=== PATIENT | male | born 1945 | race Caucasian/White ===

== ENCOUNTER 2019-09-16 10:16 | Outpatient (CLI) | payer MEDICARE, SELFPAY ==
[2019-09-16 10:37] LABS: Hematocrit 43.3 % (42.0-52.0); Hemoglobin 14.7 g/dL (14.0-18.0); Mean Corpuscular HGB Conc 33.9 g/dl (32-36); Mean Corpuscular Hemoglobin 31.6 pg (26-34); Mean Corpuscular Volume 93.1 fl (80-100); Mean Platelet Volume 10.4 fl (7.4-10.4); Platelet Count Result 273 k/mm3 (150-375); Red Blood Count 4.65 M/mm3 (4.6-6.20); Red Cell Distribution Width 12.3 % (11.5-14.5); White Blood Count 9.3 K/mm3 (4.5-10.0)
[2019-09-16 10:49] LABS: Albumin Level 4.3 g/dL (3.5-5.1); Blood Urea Nitrogen 54 mg/dL (9-20); Calcium 9.3 mg/dL (8.4-10.2); Carbon Dioxide 27 mmol/L (22-30); Chloride 103 mmol/L (98-107); Cholesterol 99 mg/dL (0-200); Creatinine Urine 46.7 mg/dL; Estimated Glomerular Filt Rate 23; Glucose 123 mg/dL (75-110); HDL Direct 33 mg/dL; Potassium 4.7 mmol/L (3.4-5.0); Sodium 139 mmol/L (137-145); Total Protein Urine Random 34 mg/dL; Triglycerides 124 mg/dL (<150)
[2019-09-16 10:53] LABS: Hemoglobin A1C 6.4 % (<5.7)
[2019-09-16 11:00] LABS: LDL Cholesterol Direct 41 mg/dL; Parathyroid Intact 102.2 pg/mL (7.5-53.5)
[2019-09-16 11:29] LABS: Vitamin D 25 Hydroxy 41.9 ng/mL
== END 2019-09-16 10:17 | disposition home or self-care (01) ==
PROVIDERS: PCP Internal Medicine; Visit Provider Internal Medicine
DX: N18.3 Chronic kidney disease, stage 3 (moderate) (principal); E11.9 Type 2 diabetes mellitus without complications; E78.5 Hyperlipidemia, unspecified
CPT/HCPCS: 36415; 80061; 80069; 82306; 82570; 83036; 83970; 84156; 85027

== ENCOUNTER 2020-01-16 11:16 | Outpatient (CLI) | payer MEDICARE, SELFPAY ==
[2020-01-16 11:52] LABS: Hemoglobin A1C 6.2 % (<5.7)
[2020-01-16 11:57] LABS: Alanine Aminotransferase 15 U/L (4-50); Alkaline Phosphatase 79 U/L (38-126); Anion Gap 9 mmol/L (8-16); Aspartate Amino Transferase 25 U/L (17-59); Bilirubin,Total 0.3 mg/dL (0.2-1.3); Blood Urea Nitrogen 51 mg/dL (9-20); Calcium 8.8 mg/dL (8.4-10.2); Carbon Dioxide 27 mmol/L (22-30); Chloride 105 mmol/L (98-107); Cholesterol 112 mg/dL (0-200); Estimated Glomerular Filt Rate 26; Glucose 121 mg/dL (75-110); HDL Direct 32 mg/dL; Potassium 4.6 mmol/L (3.4-5.0); Sodium 141 mmol/L (137-145); Triglycerides 146 mg/dL (<150)
[2020-01-16 12:07] LABS: LDL Cholesterol Direct 53 mg/dL
== END 2020-01-16 11:17 | disposition home or self-care (01) ==
LOC: ANHLAB 11:18
PROVIDERS: PCP Internal Medicine; Visit Provider Internal Medicine
DX: E78.5 Hyperlipidemia, unspecified (principal); I10 Essential (primary) hypertension; E11.69 Type 2 diabetes mellitus with other specified complication; Z79.4 Long term (current) use of insulin; Z79.899 Other long term (current) drug therapy
CPT/HCPCS: 36415; 80053; 80061; 83036; 84443

== ENCOUNTER 2020-02-06 10:55 | Outpatient (CLI) | payer MEDICARE, SELFPAY ==
[2020-02-06 11:57] LABS: Hematocrit 42.6 % (42.0-52.0); Hemoglobin 14.6 g/dL (14.0-18.0); Mean Corpuscular HGB Conc 34.3 g/dl (32-36); Mean Corpuscular Hemoglobin 31.4 pg (26-34); Mean Corpuscular Volume 91.6 fl (80-100); Mean Platelet Volume 10.8 fl (7.4-10.4); Platelet Count Result 305 k/mm3 (150-375); Red Blood Count 4.65 M/mm3 (4.6-6.20); Red Cell Distribution Width 12.5 % (11.5-14.5)
[2020-02-06 12:09] LABS: Albumin Level 4.2 g/dL (3.5-5.1); Anion Gap 10 mmol/L (8-16); Blood Urea Nitrogen 46 mg/dL (9-20); Calcium 9.4 mg/dL (8.4-10.2); Carbon Dioxide 25 mmol/L (22-30); Chloride 105 mmol/L (98-107); Estimated Glomerular Filt Rate 25; Glucose 198 mg/dL (75-110); Phosphorus 3.6 mg/dL (2.5-4.5); Potassium 4.7 mmol/L (3.4-5.0); Sodium 140 mmol/L (137-145)
[2020-02-06 12:20] LABS: Parathyroid Intact 117.6 pg/mL (7.5-53.5)
[2020-02-06 12:52] LABS: Creatinine Urine 55.2 mg/dL; Total Protein Urine Random 38 mg/dL
== END 2020-02-06 10:56 | disposition home or self-care (01) ==
PROVIDERS: PCP Internal Medicine; Referring Provider Internal Medicine; Visit Provider Internal Medicine Nephrology
DX: N18.4 Chronic kidney disease, stage 4 (severe) (principal)
CPT/HCPCS: 36415; 80069; 82306; 82570; 83970; 84156; 85027

== ENCOUNTER 2020-06-01 11:11 | Outpatient (CLI) | payer MEDICARE, SELFPAY ==
[2020-06-01 11:43] LABS: Basophils Absolute Auto 0.1 K/mm3 (0.0-0.1); Basophils Percent Auto 0.9 % (0.2-1.2); Eosinophils Percent Auto 9.9 % (0-4.4); Hematocrit 42.6 % (42.0-52.0); Hemoglobin 14.2 g/dL (14.0-18.0); Immature Granulocyte Absolute 0.06 K/mm3 (0.00-0.031); Immature Granulocyte Percent A 0.6 % (0-0.5); Lymphocytes Absolute Auto 2.07 K/mm3 (0.9-3.2); Mean Corpuscular HGB Conc 33.3 g/dl (32-36); Mean Corpuscular Hemoglobin 31.2 pg (26-34); Mean Corpuscular Volume 93.6 fl (80-100); Mean Platelet Volume 10.7 fl (7.4-10.4); Monocytes Percent Auto 9.8 % (2.6-8.5); Neutrophils Absolute Auto 5.7 K/mm3 (1.3-6.7); Neutrophils Percent Auto 57.8 % (45.5-73.1); Platelet Count Result 273 k/mm3 (150-375); Red Blood Count 4.55 M/mm3 (4.6-6.20); Red Cell Distribution Width 12.7 % (11.5-14.5); White Blood Count 9.9 K/mm3 (4.5-10.0)
[2020-06-01 11:54] LABS: Anion Gap 10 mmol/L (8-16); Blood Urea Nitrogen 53 mg/dL (9-20); Carbon Dioxide 25 mmol/L (22-30); Chloride 107 mmol/L (98-107); Cholesterol 107 mg/dL (0-200); Estimated Glomerular Filt Rate 28; Glucose 160 mg/dL (75-110); HDL Direct 39 mg/dL; Phosphorus 3.6 mg/dL (2.5-4.5); Potassium 4.3 mmol/L (3.4-5.0); Sodium 142 mmol/L (137-145); Triglycerides 120 mg/dL (<150)
[2020-06-01 11:56] LABS: Albumin Level 4.1 g/dL (3.5-5.1); Anion Gap 10 mmol/L (8-16); Blood Urea Nitrogen 53 mg/dL (9-20); Calcium 8.8 mg/dL (8.4-10.2); Carbon Dioxide 25 mmol/L (22-30); Chloride 106 mmol/L (98-107); Estimated Glomerular Filt Rate 26; Glucose 161 mg/dL (75-110); Phosphorus 3.7 mg/dL (2.5-4.5); Potassium 4.5 mmol/L (3.4-5.0); Sodium 141 mmol/L (137-145)
[2020-06-01 12:04] LABS: LDL Cholesterol Direct 41 mg/dL
[2020-06-01 12:05] LABS: Parathyroid Intact 127.3 pg/mL (7.5-53.5)
[2020-06-01 12:19] LABS: Creatinine Urine 87.6 mg/dL; Total Protein Urine Random 40 mg/dL; Ur Ttl Prot Creatinine Ratio 0.46 mg/mg (0-0.20)
[2020-06-01 12:21] LABS: Hemoglobin A1C 6.2 % (<5.7)
[2020-06-01 12:25] LABS: Parathyroid Intact 116.2 pg/mL (7.5-53.5)
[2020-06-01 12:33] LABS: Free T4 Free Thyroxine 1.03 ng/mL (0.78-2.19); Vitamin D 25 Hydroxy 39.5 ng/mL
[2020-06-01 14:47] LABS: Total Protein Urine Random 44 mg/dL
[2020-06-01 15:46] LABS: MALB Creatinine Ratio 225.7 mg/g (0-30); Microalbumin Urine Random 198.6 mg/L (0-16.7)
== END 2020-06-01 11:12 | disposition home or self-care (01) ==
LOC: ANHLAB 11:15
PROVIDERS: PCP Internal Medicine; Visit Provider Internal Medicine Nephrology
DX: I12.9 Hypertensive chronic kidney disease with stage 1 through stage 4 chronic kidney disease, or unspecified chronic kidney disease (principal); N18.4 Chronic kidney disease, stage 4 (severe); E55.9 Vitamin D deficiency, unspecified; E11.319 Type 2 diabetes mellitus with unspecified diabetic retinopathy without macular edema; Z51.81 Encounter for therapeutic drug level monitoring; Z79.4 Long term (current) use of insulin
CPT/HCPCS: 36415; 80061; 80069; 82043; 82306; 82570; 83036; 83970; 84156; 84439; 84443; 85025

== ENCOUNTER 2020-10-31 09:07 | Outpatient (CLI) | payer MEDICARE, SELFPAY ==
[2020-10-31 09:23] LABS: Hematocrit 40.8 % (42.0-52.0); Hemoglobin 13.4 g/dL (14.0-18.0); Mean Corpuscular HGB Conc 32.8 g/dl (32-36); Mean Corpuscular Volume 94.4 fl (80-100); Mean Platelet Volume 10.4 fl (7.4-10.4); Platelet Count Result 271 k/mm3 (150-375); Red Blood Count 4.32 M/mm3 (4.6-6.20); Red Cell Distribution Width 13.2 % (11.5-14.5); White Blood Count 8.8 K/mm3 (4.5-10.0)
[2020-10-31 09:52] LABS: Hemoglobin A1C 6.1 % (<5.7)
[2020-10-31 09:56] LABS: Anion Gap 12 mmol/L (8-16); Blood Urea Nitrogen 56 mg/dL (9-20); Calcium 9.3 mg/dL (8.4-10.2); Carbon Dioxide 24 mmol/L (22-30); Chloride 106 mmol/L (98-107); Cholesterol 122 mg/dL (0-200); Estimated Glomerular Filt Rate 23; Glucose 110 mg/dL (75-110); HDL Direct 38 mg/dL; Potassium 4.7 mmol/L (3.4-5.0); Sodium 142 mmol/L (137-145); Triglycerides 107 mg/dL (<150)
[2020-10-31 10:01] LABS: Creatinine Urine 45.2 mg/dL; Total Protein Urine Random 24 mg/dL; Ur Ttl Prot Creatinine Ratio 0.53 mg/mg (0-0.20)
[2020-10-31 10:07] LABS: LDL Cholesterol Direct 48 mg/dL
[2020-10-31 12:28] LABS: Albumin Level 4.1 g/dL (3.5-5.1); Anion Gap 10 mmol/L (8-16); Blood Urea Nitrogen 56 mg/dL (9-20); Calcium 9.2 mg/dL (8.4-10.2); Carbon Dioxide 26 mmol/L (22-30); Chloride 108 mmol/L (98-107); Estimated Glomerular Filt Rate 23; Glucose 109 mg/dL (75-110); Phosphorus 4.3 mg/dL (2.5-4.5); Potassium 4.7 mmol/L (3.4-5.0); Sodium 144 mmol/L (137-145)
[2020-10-31 12:46] LABS: Parathyroid Intact 98.1 pg/mL (7.5-53.5)
== END 2020-10-31 09:08 | disposition home or self-care (01) ==
LOC: ANHLAB 09:10
PROVIDERS: PCP Internal Medicine; Visit Provider Internal Medicine Nephrology
DX: E78.5 Hyperlipidemia, unspecified (principal); N18.4 Chronic kidney disease, stage 4 (severe); I10 Essential (primary) hypertension; E11.319 Type 2 diabetes mellitus with unspecified diabetic retinopathy without macular edema; Z79.4 Long term (current) use of insulin; Z79.899 Other long term (current) drug therapy
CPT/HCPCS: 36415; 80048; 80061; 80069; 82570; 83036; 83970; 84156; 84439; 84443; 85027

== ENCOUNTER 2020-12-03 08:46 | Inpatient (IN) | payer MEDICARE, SELFPAY ==
[2020-12-03] VITALS (13 sets, daily range): BP systolic 110–154; BP diastolic 39–96; PULSE 91–120; RESP 12–23; TEMP 37–37.7; O2SAT 90–99; BMI 32.1
--- NOTE | ~2020-12-03 | XR_ITS ---
EXAMINATION: XR chest port-a-cath/central DATE: 12/09/2020 16:07 INDICATION: Central line placement. TECHNIQUE: A single frontal view of the chest was obtained on 2 radiographs. COMPARISON: Chest single view at 2:19 PM FINDINGS: There are airspace and interstitial opacities throughout the lungs bilaterally. No pleural effusion or pneumothorax. The heart size is normal. The endotracheal tube tip is 4.2 cm above the car shira. There is a right internal jugular central venous catheter with tip in superior vena cava. IMPRESSION: 1. Central line tip in superior vena cava. 2. Stable diffuse lung disease, consistent with COVID-19 pneumonia without or with some component of pulmonary edema. Reviewed, dictated and finalized at location A. IMPRESSION: 1. Central line tip in superior vena cava. 2. Stable diffuse lung disease, consistent with COVID-19 pneumonia without or w ith some component of pulmonary edema.
--- NOTE | ~2020-12-03 | CT_ITS ---
EXAMINATION: CT brain wo con DATE: 12/03/2020 INDICATION: Head injury. TECHNIQUE: Computed tomography (CT) of the head was performed without intravenous contrast. The mA wa s adjusted according to patient size. Iterative reconstruction technique was employed. The dose-lengt h product was 605.33 mGy-cm. COMPARISON: None FINDINGS: There are scattered areas of low attenuation in the cerebral white matter. There is a lacun ar infarct in the right thalamus, likely chronic. There are old infarcts in the cerebellum bilaterall y. There is no intracranial hemorrhage, acute infarction, or abnormal intracranial mass lesion. The v entricles are normal in size. There is mild mucosal thickening in the paranasal sinuses. There are li bradley changes of ocular lens replacement surgeries. The orbits are normal. IMPRESSION: 1. 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 2. Moderate nonspecific cerebral white matter disease, which likely represents chronic small vessel i schemic disease. Reviewed, dictated and finalized at location B. IMPRESSION: 1. 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 2. Moderate nonspecific cerebral white matter disease, which likely represents chronic small vessel ischemic disease.
--- NOTE | ~2020-12-03 | XR_ITS ---
EXAMINATION: XR chest ET placement DATE: 12/09/2020 14:33 INDICATION: Intubation. COVID-19 pneumonia. TECHNIQUE: A single frontal view of the chest was obtained. COMPARISON: Chest single view at 7:57 AM, chest two views 12/04/20 FINDINGS: There are airspace and interstitial opacities in all lung zones bilaterally. There is a sma ll left pleural effusion. No pneumothorax. The heart size is normal. The endotracheal tube tip is 3.4 cm above the earlene. IMPRESSION: 1. Stable diffuse lung disease, consistent with COVID-19 pneumonia without or with some component of pulmonary edema. 2. Stable small left pleural effusion. Reviewed, dictated and finalized at location A. IMPRESSION: 1. Stable diffuse lung disease, consistent with COVID-19 pneumonia without or w ith some component of pulmonary edema. 2. Stable small left pleural effusion.
--- NOTE | ~2020-12-03 | XR_ITS ---
XR chest 1V portable DATE: 12/08/2020 05:43 INDICATION: Covid pneumonia TECHNIQUE: Portable AP chest on 12/08/2020 at 0519 hours COMPARISON: 12/06/2020 portable AP chest at 0440 hours FINDINGS: Extensive bilateral patchy pulmonary infiltrates appear relatively stable since 12/06/2020. No pleural effusion or pneumothorax. Heart size appears within normal range. Is aortic arch calcification. IMPRESSION: Persistent patchy bilateral pulmonary infiltrates Reviewed, dictated and finalized at location A.
--- NOTE | ~2020-12-03 | US_ITS ---
EXAMINATION:US venous doppler LE BI INDICATION:Tachycardia. Covid. TECHNIQUE: Multiple grayscale, color flow and Doppler images of the right and left lower extremity de ep venous systems were obtained and reviewed. COMPARISON:No prior studies for comparison FINDINGS: The common femoral, superficial femoral and popliteal veins demonstrate normal respiratory variation, augmentation and compressibility. Color flow is also seen within the posterior tibial, pe roneal, greater saphenous and profunda veins. IMPRESSION: 1: No lower extremity deep venous thrombosis. Reviewed, dictated and finalized at location A.
--- NOTE | ~2020-12-03 | XR_ITS ---
EXAMINATION: XR abdomen NG/feed tube insert DATE: 12/10/2020 11:21 INDICATION: Orogastric tube placement TECHNIQUE: A supine view of the abdomen and lower chest was obtained for evaluation of feeding tube placement. COMPARISON: None. FINDINGS: Endotracheal tube tip 5.3 cm above the earlene. Nasogastric tube tip in proximal side port in the body of the stomach. Right internal jugular central venous catheter tip at the midsuperior vena cava. [place] in the left lower lung zone. Heart size is normal. IMPRESSION: 1. Orogastric tube tip in proximal side port in the body of the stomach. 2. Opacities in the left lower lung zone which could represent atelectasis, pneumonia or asymmetric p ulmonary edema. Reviewed, dictated and finalized at location B. IMPRESSION: 1. Orogastric tube tip in proximal side port in the body of the stomach. 2. Opacities in the left lower lung zone which could represent atelectasis, pne umonia or asymmetric pulmonary edema.
--- NOTE | ~2020-12-03 | XR_ITS ---
EXAMINATION: XR chest 1V portable EXAM DATE: 12/10/2020 06:14 INDICATION: Acute hypoxic respiratory failure, COVID pneumonia . TECHNIQUE: Portable AP frontal chest x-ray was obtained. Comparison is made to prior examination from 12/09/2020. FINDINGS: Endotracheal tube is adequately positioned. There is a right-sided IJ venous line. Moderate amount of ill-defined bilateral airspace disease, pneumonia and/or edema. There are no siza ble pleural effusions. There is no pneumothorax suspected. Patient is rotated to the left making cardiac silhouette difficult to evaluate. The bones and soft tissues are unremarkable. There is no significant interval change compared to prior exam. IMPRESSION: 1. Line and tube in position. 2. Stable airspace disease and other findings as above. Reviewed, dictated and finalized at location A.
--- NOTE | ~2020-12-03 | XR_ITS ---
EXAMINATION: XR chest 1V portable DATE: 12/05/2020 16:57 INDICATION: COVID pneumonia TECHNIQUE: frontal view of the chest was obtained. COMPARISON: Chest radiograph dated 12/04/2020 FINDINGS: Increasing patchy groundglass opacities now throughout the right lung with no opacities in the upper lung zone and in the left mid and lower lung zones, new in the mid lung zone. No pleural effusion or pneumothorax. The cardiomediastinal silhouette is normal. IMPRESSION: 1. Continued progression in bilateral airspace opacities, right greater than left consistent with wor sening pneumonia. Reviewed, dictated and finalized at location A. IMPRESSION: 1. Continued progression in bilateral airspace opacities, right greater than le ft consistent with worsening pneumonia.
--- NOTE | ~2020-12-03 | XR_ITS ---
XR chest 1V portable 12/06/2020 05:33 Indication: CovidPneumonia Procedure: AP portable chest Comparison: Comparison to multiple prior studies sequentially, with oldest reviewed study dated 04/2011. Findings: Persistent patchy bilateral airspace disease, right greater than left. No significant effus ion or pneumothorax. Stable cardiomediastinal silhouette. No acute osseous abnormality. Impression: 1: No significant change to patchy bilateral airspace disease, compatible with pneumonia. Reviewed, dictated and finalized at location A. Impression: 1: No significant change to patchy bilateral airspace disease, compatible with pneumonia.
--- NOTE | ~2020-12-03 | XR_ITS ---
XR chest 1V portable DATE: 12/09/2020 08:16 INDICATION: Acute respiratory failure. Covid pneumonia. TECHNIQUE: Portable AP chest on 12/09/2020 at 0802 hours COMPARISON: 12/08/2020 portable AP chest at 0519 hours FINDINGS: There are extensive diffuse bilateral patchy consolidating infiltrates, increased since 11/19. There is mild prominence of the minor fissure. There is minimal blunt blunting of the costoph renic angles. Differential diagnosis includes extensive bilateral pneumonia and/or pulmonary edema. Heart size is normal. Is aortic arch calcification. IMPRESSION: Diffuse severe bilateral pulmonary infiltrates, increased in severity since 12/08/2020; di fferential diagnosis includes severe bilateral pneumonia and/or pulmonary edema Mild prominence of the minor fissure and minimal blunting of costophrenic angles may indicate mild co ngestive changes Reviewed, dictated and finalized at location A. IMPRESSION: Diffuse severe bilateral pulmonary infiltrates, increased in severi ty since 12/08/2020; differential diagnosis includes severe bilateral pneumonia and/or pulmonary edema Mild prominence of the minor fissure and minimal blunting of costophrenic angle s may indicate mild congestive changes
--- NOTE | ~2020-12-03 | XR_ITS ---
EXAMINATION: XR chest 1V portable EXAM DATE: 12/11/2020 05:37 INDICATION: Acute hypoxic respiratory failure, COVID pneumonia. TECHNIQUE: Portable AP frontal chest x-ray was obtained. Comparison is made to prior examination from 12/10, 12/09. FINDINGS: Endotracheal and feeding tube are adequately positioned. There is a right-sided IJ venous l ine. There is ill-defined bilateral airspace disease, pneumonia and/or edema. There are no sizable pleura l effusions. There is no pneumothorax suspected. The bones and soft tissues are unremarkable. Difficult to determine any interval change in airspace disease due to difference in penetration, tech nique. IMPRESSION: 1. Line and tubes in position. 2. Bilateral airspace disease as above. Reviewed, dictated and finalized at location A.
--- NOTE | ~2020-12-03 | XR_ITS ---
XR chest 2V 12/03/2020 09:27 Indication: Hypoxia. Tachycardia. Procedure: AP and lateral views of the chest Comparison: 09/19/2011 Findings: Patchy bilateral pneumonia. No significant effusion. Heart size normal. No pneumothorax. No acute osseous abnormality. Impression: 1: Patchy bilateral pneumonia, right greater than left. Reviewed, dictated and finalized at location A. Impression: 1: Patchy bilateral pneumonia, right greater than left.
--- NOTE | ~2020-12-03 | US_ITS ---
EXAMINATION: US renal BI DATE: 12/05/2020 13:40 INDICATION: Acute renal insufficiency TECHNIQUE: Multiple ultrasound grayscale images of the kidneys were obtained. COMPARISON: None. FINDINGS: The right kidney measures 13.2 x 6.1 x 5.8 cm. The left kidney measures 10.3 x 4.6 x 7.5 cm. The kidn eys demonstrate persistent diffuse increased echogenicity consistent with medical renal disease. Ther e are couple anechoic right renal cysts measuring 2.4 cm and 1.0 cm. 7 mm anechoic left renal cyst. T here is no hydronephrosis in either kidney. No stones identified. The bladder is nonvisualized, like ly decompressed with a Chou catheter reportedly in place. IMPRESSION: 1. Bilateral increased renal cortical echogenicity consistent with chronic medical renal disease. No hydronephrosis. Reviewed, dictated and finalized at location A. IMPRESSION: 1. Bilateral increased renal cortical echogenicity consistent with chronic med ical renal disease. No hydronephrosis.
--- NOTE | ~2020-12-03 | XR_ITS ---
EXAMINATION: XR chest 2V DATE: 12/04/2020 09:33 INDICATION: Pneumonia. TECHNIQUE: Frontal and lateral views of the chest were obtained. COMPARISON: Chest 2 views 12/03/2020 FINDINGS: There are airspace opacities in all right lung zones with a perihilar predominance. There a re airspace opacities in left lower lung zone. No pleural effusion or pneumothorax. The heart size is normal. IMPRESSION: 1. Worsened airspace opacities in right lung and left lower lung zone, consistent with pneumonia. Reviewed, dictated and finalized at location B. IMPRESSION: 1. Worsened airspace opacities in right lung and left lower lung zone, consiste nt with pneumonia.
--- NOTE | 2020-12-03 08:49 | ECG_ITS ---
Measurements Intervals Farber Rate: 115 P: MO: 0 QRS: -23 QRSD: 122 T: 9 QT: 293 QTc: 406 Interpretive Statements ATRIAL FLUTTER/TACHYCARDIA WITH RAPID VENTRICULAR RESPONSE CANNOT RULE OUT SEPTAL INFARCT, AGE INDETERMINATE BORDERLINE ST-T WAVE ABNORMALITY- DIFFUSE LEADS BASELINE ARTIFACT- I, II, III, AVR, AVL, AVF, V1-V6 ABNORMAL ECG Electronically Signed On 12-05-2020 16:01:42 CDT by Jean-Paul Garcia D.O.
[2020-12-03 09:17] LABS: Basophils Percent Auto 0.2 % (0.2-1.2); Hemoglobin 12.7 g/dL (14.0-18.0); Immature Granulocyte Absolute 0.11 K/mm3 (0.00-0.031); Immature Granulocyte Percent A 0.9 % (0-0.5); Lymphocytes Absolute Auto 0.37 K/mm3 (0.9-3.2); Lymphocytes Percent Auto 3.1 % (18.3-44.2); Mean Corpuscular HGB Conc 32.6 g/dl (32-36); Mean Corpuscular Hemoglobin 31.1 pg (26-34); Mean Corpuscular Volume 95.4 fl (80-100); Mean Platelet Volume 10.9 fl (7.4-10.4); Monocytes Absolute Auto 0.6 K/mm3 (0.1-0.6); Monocytes Percent Auto 4.9 % (2.6-8.5); Neutrophils Percent Auto 90.9 % (45.5-73.1); Platelet Count Result 200 k/mm3 (150-375); Red Blood Count 4.09 M/mm3 (4.6-6.20); Red Cell Distribution Width 13.8 % (11.5-14.5); White Blood Count 12.1 K/mm3 (4.5-10.0)
[2020-12-03 09:28] LABS: Lactic Acid Reflex 1.3 mmol/L (0.7-2.1)
[2020-12-03 09:29] LABS: Alanine Aminotransferase 38 U/L (4-50); Albumin Level 3.7 g/dL (3.5-5.1); Alkaline Phosphatase 63 U/L (38-126); Anion Gap 9 mmol/L (8-16); Aspartate Amino Transferase 99 U/L (17-59); Bilirubin,Total 0.2 mg/dL (0.2-1.3); Blood Urea Nitrogen 91 mg/dL (9-20); Calcium 7.8 mg/dL (8.4-10.2); Carbon Dioxide 19 mmol/L (22-30); Chloride 110 mmol/L (98-107); Estimated CRCL calculation 17 ml/min; Estimated Glomerular Filt Rate 14; Glucose 206 mg/dL (65-110); Potassium 4.3 mmol/L (3.4-5.0); Sodium 138 mmol/L (137-145)
[2020-12-03] MEDS: FAMOTIDINE 20 MG/2 ML VIAL IV PUSH (10:18)
[2020-12-03 10:41] LABS: Creatine Kinase 1437 U/L (55-170)
[2020-12-03 10:42] LABS: Lipase 26 U/L (23-300)
[2020-12-03 10:53] LABS: NT Pro B Type Natriuretic Pept 1270 pg/mL (5-100)
[2020-12-03 10:54] LABS: Troponin I 0.029 ng/mL (0.000-0.034)
--- NOTE | 2020-12-03 11:08 | ED.FALL ---
HPI - Fall General Chief Complaint: Fall Stated Complaint: Multiple falls Time Seen by Provider: 12/03/20 09:18 Source: patient, EMS and RN notes reviewed Mode of arrival: EMS Limitations: no limitations History of Present Illness HPI Narrative: Patient is 75-year-old male who presents per EMS for weakness over the last 4 days he has become progressively more weak patient has had upper respiratory symptoms with cough and congestion. Patient rolled out of bed today was unable to get up he lives at home with his who has COPD and is also experiencing upper respiratory symptoms. He is fully vaccinated for Covid. Patient on arrival to emergency department lying in the bed has no complaints of pain. Denies chest pain shortness of breath dysuria or bowel habit changes. Patient denies injury or trauma related to rolling out of bed. Per family patient is currently being treated for sinus infection with antibiotics that were called in by primary care Related Data Home Medications Medication Instructions Recorded Confirmed fiber tablet PO 11/05/20 11/07/20 Allergies Allergy/AdvReac Type Severity Reaction Status Date / Time baclofen Allergy Unknown Unknown Verified 11/05/20 14:28 Review of Systems Review of Systems: All systems reviewed & are unremarkable except as noted in HPI and below PMFSH Past Medical History Medical History Anxiety BMI 34.0-34.9,adult BMI 35.0-35.9,adult Chronic low back pain CKD (chronic kidney disease) Colon cancer screening Depression DM type 2 (diabetes mellitus, type 2) Encounter for routine adult health examination without abnormal findings Falls GERD (gastroesophageal reflux disease) HTN (hypertension) Hyperlipidemia Impaired functional mobility, balance, gait, and endurance On rpg developer drug therapy Peripheral neuropathy Pre-operative cardiovascular examination Family History Family History Mother Diabetes mellitus Family history of Alzheimer's disease Father Carcinoma of colon Other Hypertension Social History Social History Smoking status: Never smoker Second hand tobacco smoke exposure: No Alcohol intake: never Exam Narrative: GENERAL: Ill-appearing, obese, and in no acute distress. HEAD: Normocephalic, atraumatic. EYES: PERRLA and EOMI. ENT: Nares clear, no rhinorrhea or epistaxis. Mucous membranes moist. Oropharynx without tonsillar hypertrophy exudate or other lesions. NECK: Supple. No adenopathy or masses. CHEST: Clear to auscultation. No respiratory distress. Slight crackles in the lung bases bilaterally no wheezing HEART: Tachycardic rate and regular rhythm. No murmur heard. Normal peripheral pulses. ABDOMEN: Soft, nontender, distended EXTREMITIES: Normal range of motion. 1+ edema lower extremities. No cervical thoracic or lumbar tenderness SKIN: Warm, dry, no rash. NEURO: No focal deficits. Alert and oriented x3. Cranial nerves II through XII grossly intact. Normal speech PSYCH: Normal mood and affect. Course Course Emergency Course: Patient presented with sepsis presentation likely pneumonia given the upper respiratory symptoms he has had improvement with his heart rate which is now looking more as though it is a sinus tachycardia around 100 and regular. Patient was hydrated with 2 L in the emergency department and will be placed on a rate to avoid volume overload he has acute kidney injury pneumonia and it meeting SIRS criteria. Patient was given Rocephin and Zithromax. Patient had normal lactic. Patient will be placed on medical telemetry floor for his tachycardia. Discussion was made with the hospitalist service who will manage this patient. ABCs and vital signs intact and stable at this time Consultations Consultation #1: Discussed case with hospitalist who has agreed to
[2020-12-03 11:11] LABS: CRP 25.9 mg/dL (<1.0)
[2020-12-03] MEDS: SODIUM CHLORIDE 0.9% IV 1,000 ML 999 ML IV CONT (11:44)
[2020-12-03 11:52] LABS: Prothrombin Time 12.8 Seconds (11.1-14.7)
[2020-12-03 11:53] LABS: Partial Thromboplastin Time 25.3 SECONDS (22.3-36.8)
--- NOTE | 2020-12-03 11:59 | PC.NURSE ---
called lab and talked to Brittany oates on a Procalcitonin at 1155
[2020-12-03 12:49] LABS: Add Urine Microscopic? YES; Appearance Urine Cloudy (Clear); Bilirubin Urine Negative (Negative); Blood Urine 3+ (Negative); Color Urine Yellow (Yellow); Glucose Urine UA Negative (Negative); Ketones Urine Negative (Negative); Leukocyte Esterase Ur Negative LEU/UL (Negative); Nitrate Urine Negative (Negative); Protein Urine 2+ mg/dL (Negative); RBC Urine >75 /hpf (0-2); Specific Grav Ur 1.017 (1.001-1.035); Urobilinogen Urine Negative mg/dL (<2.0)
[2020-12-03 13:00] LABS: Procalcitonin 8.2 ng/mL
--- NOTE | 2020-12-03 13:33 | PM.IMHP ---
H&P: HPI History of Present Illness Date/Time: 12/03/20 13:33 Nguyễn is alert and oriented x 3-4. He was able to tell me what Hospital we are in, the president and the correct emergency services dispatcher names, the day, and recall his medical history well. His full neuor assessment was negative for any concerns, no new weakness or unilateral changes or weakness, no numbness or new tingling, and he does have chronic neuropathy that his PCP treats him for. He does admit to having a dry but persistent cough and chest congestion at home, but denies fevers or chills. He states that he had both Moderna Vaccinations back in July. He denies any use of oxygen at home, but he is currently on 4 L O2 NC and has SpO2 of 94-95% with RR 20s. No dyspnea or wheezing with conversation. He stated that his has been home sick for a few days, that they both went to see their PCP Dr. Pulido in October, so they called him when she was feeling poorly. She has had chest congestion and coughing and her PCP diagnosed her with pneumonia per Nguyễn. Then Nguyễn noticed that he too was developing cough and chest congestion, so their PCP called in oral antibiotics Cefdinir, which Nguyễn has taken for 1-2 days, before coming to the ED today. He also stated that they used bottled water only for drinking, and that they had been out of bottled water for some time, but finally got some this weekend. He admitted that he has very likely not been drinking enough water at home. This could explain his worsening acute on chronic renal failure. He also has a few nephrotoxic home medications, including: HCTZ, ozempic. He denies drinking alcohol or smoking. He stated that he has fallen or felt more accurately that he slid out of bed today and yesterday; he denies any other occurrences. He denies passing out and does remember the occasions that he slid out of bed. He also denies any injuries and denies hitting his head. Admitted to ED, found to have bilateral patchy pneumonia with right worse than left, no effusion, normal heart size, COVID test is pending, started on IV Azithro and IV Rocephin. His blood cultures were collected, procalcitonin and his UA reflex collected but still pending. 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 Elevated labs include: Creatinine 4.2 ( from 2020 to October 2020 creatinine baseline was 2.3-2.7). AST elevated at 99, WBC 12.1 today with October 2020 baseline 8.8, Total CK 1437, CRP 25.9, BNP 1270, PTH 98.1 in October 2020. He is receiving IVFs, diabetic diet, Moderate SSI and glucose checks, telemetry monitoring, and breathing treatments. He will be admitted, treated, and monitored for Acute on Chronic Renal Failure with Dehydration, Sepsis, uncontrolled DM, Community Acquired Bilateral Pneumonia (treated as bacterial until proven or disproven to be viral), Elevated PTH, Rhabdomyolsis, and Weakness with Recent Fall. Chief Complaint: Weakness, Dehydration, Cough and Chest congestion Review of Systems Review of Systems: All systems reviewed & are unremarkable except as noted in HPI and below Constitutional: Constitutional: Reports as per HPI, Denies chills, Denies excessive sweating, Reports fatigue, Denies headache(s), Denies increased appetite, Reports lethargy, Denies snoring, Reports weakness and Denies weight gain Eyes: Eyes: Reports as per HPI, Denies exophthalmos, Denies diplopia, Denies floaters and Denies loss of peripheral vision ENT: Reports as per HPI, Reports Normal hearing present, Denies facial pain, Denies headache(s), Denies epistaxis, Denies nasal congestion, Denies odynophagia and Denies tinnitus Cardiovascular: Cardiovascular: Reports as per HPI, Denies chest pain, Denies diaphoresis, Denies pedal edema, Denies leg edema and Denies lightheadedness Respiratory: Respiratory: Reports as per HPI, Reports chest congestion, Reports cough, Denies hemoptysis, Denies dyspnea, Denies dyspnea on exertion, Denies snoring and Denies wheezing Gastrointestinal:
[2020-12-03 13:35] LABS: Glucose Point of Care 273 mg/dl (65-105)
[2020-12-03] MEDS: IPRATROPIUM BR 0.02% INH SOLN 0.5 MG/2.5 ML VIAL INHALATION ×2 (15:17→20:04)
[2020-12-03] MEDS: ALBUTEROL SULFATE NEB 2.5 MG/0.5 ML INH 5 MG INHALATION ×2 (15:17→20:03)
--- NOTE | 2020-12-03 17:24 | ADMGEN ---
This patient, Nguyễn Farrar, was admitted to 3 [facility] Surg Room 303-01 at 1645. Patient/family oriented to hospital policies and general routines including ID bracelet, bed and alarms, visiting hours, pain management, procedures, bathroom and other care routines, personal items, smoking policy, room service/diet, and visiting hours. Information on how to activate the Rapid Response Team has been discussed. Patient/Family are encouraged to report perceived risks to care and to ask questions if they do not understand what they are told or what they should do.
[2020-12-03 18:30] LABS: SARS-CoV-2 RNA PCR Positive
[2020-12-03 18:41] LABS: Glucose Point of Care 182 mg/dl (65-105)
[2020-12-03] MEDS: LACTATED RINGERS 1,000 ML 100 ML IV CONT (18:47)
[2020-12-03 18:58] LABS: Glucose Point of Care 147 mg/dl (65-105)
--- NOTE | 2020-12-03 20:25 | PC.NURSE ---
during shift change pt pulled out IV as well as telemetry. Tele was placed back on but will try to get another IV
[2020-12-03] MEDS: PREGABALIN (*CRX) 75 MG CAPSULE PO (23:23)
[2020-12-03 23:26] LABS: Glucose Point of Care 155 mg/dl (65-105)
[2020-12-04] VITALS (29 sets, daily range): BP systolic 101–155; BP diastolic 60–78; PULSE 85–129; RESP 18–24; TEMP 36.5–38.9; O2SAT 77–100
--- NOTE | 2020-12-04 | ECHO_ITS ---
Patient Info Name: Nguyễn Farrar Age: 75 years : 1945 Gender: Male Ht: 72 in Wt: 236 lbs BSA: 2.36 m2 HR: 120 bpm BP: 140 / 78 mmHg Heart Rhythm: Tachycardia Exam Date: 12/04/2020 1:43 PM Exam Location: [facility] Patient Status: Inpatient Admit Date: 12/04/2020 Staff Ordering Physician: Yadira De Oliveira NP Thai Masseur: Ayaan Long RDCS, RT Attending Provider: Korin Nino PA-C Referring Physician: Alvino RODRIGUES; Exam Type: CA echo doppler color flow Study Info Indications J96.90 - Respiratory failure, unspecified, unspecified whether with hypoxia or hypercapnia R06.02 - Shortness of breath R65.20 - Severe sepsis without septic shock Complete two-dimensional, color flow and Doppler transthoracic echocardiogram is performed. Summary 1. Complete two-dimensional, color flow and Doppler transthoracic echocardiogram is performed. 2. Normal left ventricular size with mild concentric hypertrophy and also sigmoid hypertrophy. The left ventricle was hyperdynamic with a visual estimate of ejection fraction of 65-70%. There were no focal wall motion abnormalities. Normal diastolic function. 3. Normal estimated pulmonary pressure. 4. There is mild tricuspid valve regurgitation. 5. Underlying rhythm is a tachycardia. Left Ventricle Left ventricular chamber dimension is normal. Left ventricular systolic function is hyperdynamic, estimated at 65-70%. There is mildly increased left ventricular wall thickness. Left ventricular septal wall motion is normal. The left ventricular diastolic function is normal. Left ventricular chamber size, wall thickness, systolic and diastolic function are normal with no regional wall motion abnormalities with an estimated ejection fraction of Empty. Right Ventricle Right ventricular chamber dimension is normal. Right ventricular systolic function is normal. Left Atria Left atrial chamber dimension is normal. Right Atria Right atrial chamber dimension is normal. Aortic Valve The aortic valve is trileaflet. There is mild aortic valve sclerosis. There is no aortic valve stenosis. There is no aortic valve regurgitation. Pulmonic Valve The pulmonic valve is normal. There is no pulmonic valve stenosis. There is no pulmonic regurgitation. Mitral Valve The mitral valve has normal leaflets. There is no mitral valve stenosis. There is trace mitral valve regurgitation. Tricuspid Valve The tricuspid valve leaflets are normal. There is no significant tricuspid valve stenosis. There is mild tricuspid valve regurgitation. No pulmonary hypertension, estimated pulmonary arterial systolic pressure is 63 mmHg. Pericardium/Pleural The pericardium appears normal. There is no pericardial effusion. Inferior Vena Cava Normal inferior vena cava with >50% collapse upon inspiration consistent with Empty right atrial pressure, 31 mmHg. Aorta The aortic root size at the sinus of Valsalva is normal. The prox ascending aorta size is normal. Left Ventricular Outflow Tract Name Value Normal LVOT 2D LVOT Diameter 2.0 cm LVOT Doppler LVOT Peak
[2020-12-04] MEDS: IPRATROPIUM BR 0.02% INH SOLN 0.5 MG/2.5 ML VIAL INHALATION ×6 (01:46→21:27)
[2020-12-04] MEDS: ALBUTEROL SULFATE NEB 2.5 MG/0.5 ML INH 5 MG INHALATION ×6 (01:46→21:27)
--- NOTE | 2020-12-04 05:03 | PCRCNOTE ---
Window of time for administration has passed. See next scheduled administration.
[2020-12-04 05:42] LABS: Basophils Percent Auto 0.3 % (0.2-1.2); Hematocrit 38.8 % (42.0-52.0); Hemoglobin 12.7 g/dL (14.0-18.0); Immature Granulocyte Absolute 0.06 K/mm3 (0.00-0.031); Immature Granulocyte Percent A 0.7 % (0-0.5); Lymphocytes Absolute Auto 0.51 K/mm3 (0.9-3.2); Lymphocytes Percent Auto 5.8 % (18.3-44.2); Mean Corpuscular HGB Conc 32.7 g/dl (32-36); Mean Corpuscular Hemoglobin 30.5 pg (26-34); Mean Corpuscular Volume 93.3 fl (80-100); Mean Platelet Volume 10.7 fl (7.4-10.4); Monocytes Absolute Auto 0.6 K/mm3 (0.1-0.6); Monocytes Percent Auto 6.8 % (2.6-8.5); Neutrophils Absolute Auto 7.6 K/mm3 (1.3-6.7); Neutrophils Percent Auto 86.4 % (45.5-73.1); Platelet Count Result 197 k/mm3 (150-375); Red Blood Count 4.16 M/mm3 (4.6-6.20); Red Cell Distribution Width 13.7 % (11.5-14.5); White Blood Count 8.8 K/mm3 (4.5-10.0)
[2020-12-04 06:18] LABS: Parathyroid Intact 71.2 pg/mL (7.5-53.5)
[2020-12-04 06:41] LABS: NT Pro B Type Natriuretic Pept 3710 pg/mL (5-100)
[2020-12-04 06:44] LABS: Alanine Aminotransferase 49 U/L (4-50); Albumin Level 3.3 g/dL (3.5-5.1); Alkaline Phosphatase 57 U/L (38-126); Anion Gap 13 mmol/L (8-16); Aspartate Amino Transferase 145 U/L (17-59); Bilirubin,Total 0.5 mg/dL (0.2-1.3); Blood Urea Nitrogen 80 mg/dL (9-20); CRP > 9.0 mg/dL (<1.0); Calcium 8.2 mg/dL (8.4-10.2); Carbon Dioxide 18 mmol/L (22-30); Chloride 113 mmol/L (98-107); Creatine Kinase 2669 U/L (55-170); Estimated CRCL calculation 20 ml/min; Estimated Glomerular Filt Rate 16; Glucose 162 mg/dL (65-110); Potassium 4.1 mmol/L (3.4-5.0); Sodium 144 mmol/L (137-145)
[2020-12-04 08:38] LABS: Glucose Point of Care 170 mg/dl (65-105)
[2020-12-04] MEDS: SIMVASTATIN 20 MG TABLET PO (08:44)
[2020-12-04] MEDS: FLUTICASONE PROPIONATE 0.05% NA SPR 16 GM BTL (*BKC) 2 SPRAY NASAL (08:44)
[2020-12-04] MEDS: LORATADINE 10 MG TABLET PO (08:44)
[2020-12-04] MEDS: PANTOPRAZOLE 40 MG TABLET PO (08:44)
[2020-12-04] MEDS: buPROPion HCL XL (24 HR) 150 MG TABCR BY MOUTH (08:44)
[2020-12-04] MEDS: PREGABALIN (*CRX) 75 MG CAPSULE PO ×3 (08:44→18:00)
[2020-12-04] MEDS: ACETAMINOPHEN 325 MG TABLET 650 MG PO (12:09)
[2020-12-04] MEDS: FAMOTIDINE 20 MG/2 ML VIAL IV PUSH ×2 (12:10→20:43)
[2020-12-04] MEDS: ENOXAPARIN 30 MG/0.3 ML SYRINGE SUB-Q (12:10)
[2020-12-04 12:39] LABS: Glucose Point of Care 230 mg/dl (65-105)
--- NOTE | 2020-12-04 12:54 | ECG_ITS ---
Measurements Intervals [place] Rate: 116 P: MD: 0 QRS: -16 QRSD: 94 T: 8 QT: 293 QTc: 407 Interpretive Statements ATRIAL FLUTTER/TACHYCARDIA WITH RAPID VENTRICULAR RESPONSE LOW QRS VOLTAGE IN PRECORDIAL LEADS BORDERLINE T WAVE ABNORMALITY- INFERIOR LEADS BASELINE ARTIFACT- II, III, AVR, AVF, V4-V6 ABNORMAL ECG Electronically Signed On 12-04-2020 13:48:42 CDT by Jean-Paul Garcia D.O.
[2020-12-04] MEDS: INSULIN ASPART (*BKC) 100 UNITS/ML SUB-Q ×2 (13:12→17:57)
--- NOTE | 2020-12-04 13:53 | ECG_ITS ---
Measurements Intervals [place] Rate: 124 P: NC: 0 QRS: 14 QRSD: 88 T: 25 QT: 295 QTc: 424 Interpretive Statements ATRIAL FLUTTER/TACHYCARDIA WITH RAPID VENTRICULAR RESPONSE BASELINE ARTIFACT- II, III, AVF, V1, V6 ABNORMAL ECG Electronically Signed On 12-04-2020 15:06:28 CDT by Jean-Paul Garcia D.O.
--- NOTE | 2020-12-04 17:25 | PM.IMPN ---
Progress Note: A&P Assessment and Plan (1) Pneumonia: Code(s): J18.9 - Pneumonia, unspecified organism Status: Acute Assessment and Plan: Due to COVID -Dexamethasone started -Pt unable to receive Remdesivir due to kidney function -Will stop abx, no signs of bacterial infection -BC NGTD -Pt has slight AMS, likely due to COVID and hospital delirium. His initial CT of the brain is negative for acute pathology and he has no neurological deficits on exam -Continue O2, currently on 3L (2) Acute renal failure: Code(s): N17.9 - Acute kidney failure, unspecified Status: Acute Assessment and Plan: Improving with IV fluids now down to 3.7 from 4.2 -Pt baseline 2.3-2.7 but has not been drinking h20; continue IVF -He is making urine -co2 low,likely due to renal failure. will add bicarb. Lactic normal on admission -ck elevated, could be a factor as well (3) Acute dehydration: Code(s): E86.0 - Dehydration Status: Acute Assessment and Plan: As above -Continue IVF (4) Impaired functional mobility, balance, gait, and endurance: Code(s): Z74.09 - Other reduced mobility Status: Acute Assessment and Plan: PT and OT ordered, they have not seen the patient yet -Continue holding home medications that affect balance and mobility: such as Lorazepam, Percocet, Pregabalin, Cyclobenazprine (5) Peripheral neuropathy: Qualifiers: Peripheral neuropathy type: polyneuropathy, unspecified Qualified Code(s): G62.9 - Polyneuropathy, unspecified Code(s): G62.9 - Polyneuropathy, unspecified Status: Acute Assessment and Plan: Chronic (6) Falls: Qualifiers: Encounter type: initial encounter Qualified Code(s): W19.XXXA - Unspecified fall, initial encounter Code(s): W19.XXXA - Unspecified fall, initial encounter Status: Acute Assessment and Plan: As above -weakness due to covid -PT and OT ordered. Bed alarm on (7) Sepsis with acute hypoxic respiratory failure: Code(s): A41.9 - Sepsis, unspecified organism; R65.20 - Severe sepsis without septic shock; J96.01 - Acute respiratory failure with hypoxia Status: Acute Assessment and Plan: 2/2 to COVID -improving (8) Tachycardia: Code(s): R00.0 - Tachycardia, unspecified Status: Acute Assessment and Plan: Could be 2/2 to COVID/PNA -Metoprolol ordered 1456, never given and never notified -pt continues to be tachycardic. Spoke with RN about giving the metoprolol as ordered -echo ordered -ekg x 2 reviewed and would ask cardiology their opinion. Concerning for afib or flutter but not straight forward. -PRN metoprolol until cardiology can assess (9) Acute hyperglycemia: Code(s): R73.9 - Hyperglycemia, unspecified Status: Acute Assessment and Plan: Noted to be 300 at 1731 -a1c 6.1 last month, will draw again -likely worse due to steroids and acute illness -continue SSI, consider lantus if he continues to be high (10) Rhabdomyolysis: Code(s): M62.82 - Rhabdomyolysis Status: Acute Assessment and Plan: CK 2669 -Continue IV fluids -monitor renal function (11) Pneumonia due to COVID-19 virus: Code(s): U07.1 - COVID-19; J12.82 - Pneumonia due to coronavirus disease 2019 Status: Acute Assessment and Plan: As above -pt was vaccinated, unclear which vaccine he recieved (EMR states he got one 06/15/20 but mentions pfizer and moderna) Time Spent With Patient Time with patient: 25 - 35 minutes Subjective Date/time seen: 12/04/20 17:25 Interval history: Pt is a 75-year-old male here for COVID PNA. Patient was seen today and is slightly confused. He did not know where he was or what the year was but knew the president, his name and his birthday. Patient states that he is not any pain. Pt denies nausea, vomiting, c
[2020-12-04 17:41] LABS: Glucose Point of Care 300 mg/dl (65-105)
[2020-12-04] MEDS: METOPROLOL TARTRATE INJ 5 MG/5 ML VIAL IV PUSH (17:50)
[2020-12-04] MEDS: SODIUM BICARBONATE TAB 650 MG TABLET PO (18:06)
[2020-12-04] MEDS: LORazepam (*CRX) 0.5 MG TABLET PO (20:33)
[2020-12-04] MEDS: HALOPERIDOL LACTATE 5 MG/ML VIAL IV PUSH (21:50)
--- NOTE | 2020-12-04 21:55 | PM.EVENT ---
Event Note Event Note Event Note: I was called about patient not keeping his non-rebreather on and deciding way into the 70s taking longer time to recuperate decision has been made to transfer the patient to IMU and placed on BiPAP overnight. Patient is confused does not seem to be in any distress. Will continue to monitor.
[2020-12-04] MEDS: LORazepam INJ (*CRX) 2 MG/ML VIAL 1 MG IV PUSH (22:04)
[2020-12-04] MEDS: LACTATED RINGERS 1,000 ML 125 ML IV CONT (22:56)
--- NOTE | 2020-12-04 23:53 | PC.NURSE ---
Patient was found on room air at 88%. Encouraged patient to take deep breaths and patient improved. Rechecked patient and found him extremely restless, pulling at equipment, and found patient to be hypoxic. Placed patient on 15L non rebreather and oxygen saturation did improve but patient continued to be restless. Gave patient medication to help with restlessness to hopefully improve tolerance of oxygen therapy. Medication was unsuccessful. Notified Dr. Calhoun of patients medical status. Dr. Calhoun came to assess the patient. Respiratory was in the room along with Dr. Calhoun. Dr. Calhoun assessed that a higher level of care was needed. Medication was ordered to be given to help restlessness. Patient was then transferred to IMU. Report was given to Carie MCFADDEN. No further questions from her after report.
[2020-12-05] VITALS (25 sets, daily range): BP systolic 105–137; BP diastolic 50–95; PULSE 72–120; RESP 19–26; TEMP 36.3–36.8; O2SAT 90–99
[2020-12-05] MEDS: ALBUTEROL SULFATE NEB 2.5 MG/0.5 ML INH 5 MG INHALATION ×3 (00:20→11:59)
[2020-12-05] MEDS: IPRATROPIUM BR 0.02% INH SOLN 0.5 MG/2.5 ML VIAL INHALATION ×4 (00:20→21:44)
--- NOTE | 2020-12-05 00:49 | PC.NURSE ---
This patient, Nguyễn Farrar, was received from [facility] on 12/04/20 at 2230. Patient/family oriented to unit policies and routines
[2020-12-05 05:44] LABS: Hematocrit 40.5 % (42.0-52.0); Hemoglobin 13.2 g/dL (14.0-18.0); Mean Corpuscular HGB Conc 32.6 g/dl (32-36); Mean Corpuscular Hemoglobin 30.3 pg (26-34); Mean Corpuscular Volume 93.1 fl (80-100); Mean Platelet Volume 11.1 fl (7.4-10.4); Platelet Count Result 195 k/mm3 (150-375); Red Blood Count 4.35 M/mm3 (4.6-6.20); Red Cell Distribution Width 13.9 % (11.5-14.5); White Blood Count 8.5 K/mm3 (4.5-10.0)
[2020-12-05 06:11] LABS: Hemoglobin A1C 6.5 % (<5.7)
--- NOTE | 2020-12-05 06:21 | PCRCNOTE ---
Window of time for administration has passed. See next scheduled administration.
[2020-12-05 06:41] LABS: Alanine Aminotransferase 59 U/L (4-50); Alkaline Phosphatase 54 U/L (38-126); Anion Gap 14 mmol/L (8-16); Aspartate Amino Transferase 164 U/L (17-59); Bilirubin,Total 0.4 mg/dL (0.2-1.3); Blood Urea Nitrogen 96 mg/dL (9-20); Calcium 7.8 mg/dL (8.4-10.2); Carbon Dioxide 15 mmol/L (22-30); Chloride 110 mmol/L (98-107); Creatine Kinase 2690 U/L (55-170); Estimated CRCL calculation 16 ml/min; Estimated Glomerular Filt Rate 13; Glucose 329 mg/dL (65-110); Potassium 4.7 mmol/L (3.4-5.0); Sodium 139 mmol/L (137-145)
[2020-12-05 07:24] LABS: Alveolar/Arterial O2 Gradient 334.2 mmHg; Base Excess ABG -9.3 mEq/l (+/-2.0); Carboxyhemoglobin 0.7 % THb (0-2.0); Fractional Inspired Oxygen 60 %; HCO3 ABG 14.9 mEq/l (22.0-26.0); Methemoglobin ABG 0.3 %THb (0-1.5); Oxygen Content ABG 17.2 %vol (16.0-22.0); Oxygen Saturation ABG 91.3 % (95.0-100.0); Oxyhemoglobin 90.8 % THb (90.0-100.0); PCO2 ABG 28.1 mmHg (35.0-45.0); PO2 ABG 62.7 mmHg (80.0-100.0); PO2 FiO2 Ratio Arterial Blood 1.04 %; Reduced Hemoglobin 8.2 %THb (0-5.0); Total Hemoglobin 13.5 g/dL (12.0-18.0); pH ABG 7.343 (7.350-7.450)
[2020-12-05 07:27] LABS: Site Drawn RIGHT BRACHIAL
[2020-12-05 07:28] LABS: Device NON-INVASIVE VENT; Non-Invasive Expiratory Pressure 8 CMH2O; Non-Invasive Inspiratory Pressure 16 CMH2O; Non-Invasive Vent Rate 4 /MIN
--- NOTE | 2020-12-05 08:05 | PM.CNNEP ---
Assessment and Plan Assessment and plan (1) Acute renal failure: Code(s): N17.9 - Acute kidney failure, unspecified Status: Acute Assessment and Plan: Patient has acute kidney injury. Several issues are occurring. The patient has COVID. Sometimes this can directly affect the kidneys or the inflammation associated therewith can cause some kidney damage. The patient has not been eating or drinking very well lately. He could be a bit dry. The patient has elevated CPK. Usually this does not affect the kidneys unless it is above 5000 but he does have some blood in his urine suggesting that some toxic elements are getting in there. Will check urine electrolytes and a renal ultrasound. The latter has already been ordered. The patient CPK was on the rise but plateaued between yesterday and today. He was getting lactated Ringer's from the ER but this was switched by SELENA Nino to a sodium bicarb drip. I agree with this so that we can alkalinize the urine to protect his kidneys. I will cut the rate down though because of the COVID so does not cause volume overload and add Diamox to help alkalinize the urine. (2) Chronic kidney disease, stage 4 (severe): Code(s): N18.4 - Chronic kidney disease, stage 4 (severe) Status: Acute Assessment and Plan: He has chronic kidney disease stage 4 from diabetes and hypertension. His baseline GFR is around 23. This was the value in early October in the office. (3) Pneumonia due to COVID-19 virus: Code(s): U07.1 - COVID-19; J12.82 - Pneumonia due to coronavirus disease 2019 Status: Acute Assessment and Plan: The patient has the COVID. He is getting dexamethasone, supportive respiratory care, and is on isolation. (4) Rhabdomyolysis: Code(s): M62.82 - Rhabdomyolysis Status: Acute Assessment and Plan: The patient has rhabdomyolysis. We will hold the statin. (5) Hematuria: Code(s): R31.9 - Hematuria, unspecified Status: Acute Assessment and Plan: This may be from the rhabdo. (6) GERD (gastroesophageal reflux disease): Qualifiers: Esophagitis presence: esophagitis presence not specified Qualified Code(s): K21.9 - Gastro-esophageal reflux disease without esophagitis Code(s): K21.9 - Gastro-esophageal reflux disease without esophagitis Status: Acute Assessment and Plan: The patient is on Pepcid (7) DM type 2 (diabetes mellitus, type 2): Qualifiers: Diabetes mellitus long term care administrator insulin use: with fci use Diabetes mellitus complication status: with ophthalmic complications Diabetes mellitus complication detail: with diabetic retinopathy Diabetic retinopathy severity: with unspecified retinopathy severity Diabetes mellitus macular edema: macular edema presence unspecified Laterality: unspecified laterality Qualified Code(s): E11.319 - Type 2 diabetes mellitus with unspecified diabetic retinopathy without macular edema; Z79.4 - superintendent container terminal (current) use of insulin Code(s): E11.9 - Type 2 diabetes mellitus without complications Status: Acute Assessment and Plan: He is on Accu-Cheks and sliding-scale insulin (8) Hyperlipidemia: Qualifiers: Hyperlipidemia type: unspecified Qualified Code(s): E78.5 - Hyperlipidemia, unspecified Code(s): E78.5 - Hyperlipidemia, unspecified Status: Acute Assessment and Plan: We are holding the statin for now History of Present Illness Reason for Consult Consult date: 12/05/20 Chief Complaint Chief complaint: Sepsis/acute kidney injury/dehydration/pneumonia/P History of Present Illness Narrative: Nguyễn is a very pleasant 75-year-old gentleman who has multiple medical problems including morbid obesity, diabetes, hyperlipidemia, chronic kidney disease with a baseline creatinine around 2.5, allergies, GERD, hypertension. The patient says that his developed a cough. She went to see
[2020-12-05 08:36] LABS: Lactic Acid Reflex 1.3 mmol/L (0.7-2.1)
[2020-12-05 08:45] LABS: Glucose Point of Care 332 mg/dl (65-105)
[2020-12-05 09:00] LABS: Creatine Kinase 3083 U/L (55-170)
[2020-12-05] MEDS: FLUTICASONE PROPIONATE 0.05% NA SPR 16 GM BTL (*BKC) 2 SPRAY NASAL (09:24)
[2020-12-05] MEDS: buPROPion HCL XL (24 HR) 150 MG TABCR BY MOUTH (09:24)
[2020-12-05] MEDS: LORATADINE 10 MG TABLET PO (09:25)
[2020-12-05] MEDS: PREGABALIN (*CRX) 75 MG CAPSULE PO ×2 (09:25→13:20)
[2020-12-05] MEDS: SODIUM BICARBONATE TAB 650 MG TABLET 1300 MG PO ×2 (09:25→17:18)
[2020-12-05] MEDS: INSULIN ASPART (*BKC) 100 UNITS/ML SUB-Q ×2 (09:26→13:20)
[2020-12-05] MEDS: FAMOTIDINE 20 MG/2 ML VIAL IV PUSH ×2 (09:26→21:08)
[2020-12-05] MEDS: INSULIN GLARGINE (*BKC) 100 UNITS/ML SUB-Q (09:26)
[2020-12-05] MEDS: SODIUM BICARBONATE 8.4% 75 MEQ in WATER, STERILE FOR INJECTION 1,000 ML 100 MEQ IV CONT (09:27)
[2020-12-05] MEDS: PANTOPRAZOLE 40 MG TABLET PO (09:27)
[2020-12-05 12:05] LABS: Glucose Point of Care 344 mg/dl (65-105)
[2020-12-05 12:46] LABS: Glucose Point of Care 307 mg/dl (65-105)
[2020-12-05] MEDS: ENOXAPARIN 120 MG/0.8 ML SYRINGE 107 MG SUB-Q (13:19)
[2020-12-05 13:50] LABS: Creatinine Urine 71.2 mg/dL; Total Protein Urine Random 149 mg/dL; Ur Ttl Prot Creatinine Ratio 2.09 mg/mg (0-0.20)
[2020-12-05 13:58] LABS: Sodium Urine Random 39 meq/L
--- NOTE | 2020-12-05 14:07 | PM.IMPN ---
Progress Note: A&P Assessment and Plan (1) Pneumonia: Code(s): J18.9 - Pneumonia, unspecified organism Status: Acute Assessment and Plan: Due to COVID -continue but the son -Pt unable to receive Remdesivir due to kidney function -no indication for antibiotics at this time - NGTD -Pt has AMS, likely due to COVID, uremia and hospital delirium. His initial CT of the brain is negative for acute pathology and he has no neurological deficits on exam -patient is now on 15 L -spoke with the family about plan of care. They would like him to be a full code. He was vaccinated with Moderna back in May and June -check CXR in the AM. Pt has been afebrile since 12/04 at 1600 (2) Acute renal failure: Code(s): N17.9 - Acute kidney failure, unspecified Status: Acute Assessment and Plan: Worsened overnight -yesterday he had problems with his IV, I am unsure of how much IV fluids he received. He has been receiving IV fluids persistently today -Pt baseline 2.3-[address] Capellan -He is making urine -co2 low,likely due to renal failure. IV bicarb started -ck elevated, could be a factor as well. Continue IV fluids (3) Acute dehydration: Code(s): E86.0 - Dehydration Status: Acute Assessment and Plan: As above -Continue IVF (4) Impaired functional mobility, balance, gait, and endurance: Code(s): Z74.09 - Other reduced mobility Status: Acute Assessment and Plan: Continue PT and OT -Continue holding home medications that affect balance and mobility: such as Lorazepam, Percocet, Pregabalin, Cyclobenazprine (5) Peripheral neuropathy: Qualifiers: Peripheral neuropathy type: polyneuropathy, unspecified Qualified Code(s): G62.9 - Polyneuropathy, unspecified Code(s): G62.9 - Polyneuropathy, unspecified Status: Acute Assessment and Plan: Chronic (6) Falls: Qualifiers: Encounter type: initial encounter Qualified Code(s): W19.XXXA - Unspecified fall, initial encounter Code(s): W19.XXXA - Unspecified fall, initial encounter Status: Acute Assessment and Plan: weakness due to covid -PT and OT ordered. Bed alarm on (7) Sepsis with acute hypoxic respiratory failure: Code(s): A41.9 - Sepsis, unspecified organism; R65.20 - Severe sepsis without septic shock; J96.01 - Acute respiratory failure with hypoxia Status: Acute Assessment and Plan: 2/2 to COVID -improving (8) Tachycardia: Code(s): R00.0 - Tachycardia, unspecified Status: Acute Assessment and Plan: Could be 2/2 to COVID/PNA -albuterol switched to Xopenex -Metoprolol p.r.n. ordered for heart rate greater than 120. This has not been given -cardiology consulted -echo ordered -ekg x 2 reviewed 12/04/20 and would ask cardiology their opinion. Concerning for afib or flutter but not straight forward. (9) Acute hyperglycemia: Code(s): R73.9 - Hyperglycemia, unspecified Status: Acute Assessment and Plan: Noted to be 344 at 1140 -after speaking to the son, he apparently takes Tresiba 44 units and Ozempic (dose unknown) -this is likely why he has been hyperglycemic since we are under dosing him. I will start with 20 units of Lantus at night since the patient has a decreased appetite but will likely need to increase this -a1c 6.5 -continue scheduled insulin as well as sliding scale (10) Rhabdomyolysis: Code(s): M62.82 - Rhabdomyolysis Status: Acute Assessment and Plan: CK 3083 -Continue IV fluids -monitor renal function (11) Pneumonia due to COVID-19 virus: Code(s): U07.1 - COVID-19; J12.82 - Pneumonia due to coronavirus disease 2018 Status: Acute Assessment and Plan: As above -pt was vaccinated with moderna in june 2019 (12) DM type 2 (diabetes mellitus, type 2): Qualifi
[2020-12-05 15:01] LABS: Anion Gap 17 mmol/L (8-16); Blood Urea Nitrogen 101 mg/dL (9-20); Carbon Dioxide 18 mmol/L (22-30); Chloride 106 mmol/L (98-107); Estimated CRCL calculation 14 ml/min; Estimated Glomerular Filt Rate 11; Glucose 342 mg/dL (65-110); Potassium 4.1 mmol/L (3.4-5.0); Sodium 141 mmol/L (137-145)
[2020-12-05 15:07] LABS: Alveolar/Arterial O2 Gradient 622.2 mmHg; Base Excess ABG -10.2 mEq/l (+/-2.0); Fractional Inspired Oxygen 100 %; Oxygen Content ABG 17.3 %vol (16.0-22.0); Oxygen Saturation ABG 91.6 % (95.0-100.0); Oxyhemoglobin 90.7 % THb (90.0-100.0); PCO2 ABG 26.9 mmHg (35.0-45.0); PO2 ABG 63.9 mmHg (80.0-100.0); PO2 FiO2 Ratio Arterial Blood 0.64 %; Total Hemoglobin 13.6 g/dL (12.0-18.0); pH ABG 7.335 (7.350-7.450)
[2020-12-05 15:09] LABS: Device NON-REBREATHER MASK; Site Drawn RIGHT BRACHIAL
[2020-12-05 15:52] LABS: Glucose Point of Care 405 mg/dl (65-105)
--- NOTE | 2020-12-05 16:58 | PM.CNCAR ---
Assessment and Plan Assessment and plan (1) Tachycardia: Code(s): R00.0 - Tachycardia, unspecified Status: Acute Assessment and Plan: New onset atrial fibrillation secondary to acute illness with COVID-19 pneumonia. Currently, his rate is in the low 100s but apparently yesterday he remained tachycardic with a rate in the 140s to 150s. He does have some tachycardia today noted on telemetry. He did receive a dose of IV metoprolol yesterday which was helpful in controlling his rate. -will initiate metoprolol tartrate 25 mg q.8 hours with holding parameters -Transition from lovenox to Eliquis 5mg BID. -continue telemetry History of Present Illness History of Present Illness Consult date/time: 12/05/20 16:58 Requesting physician: Korin Nino PA-C Consult reason: atrial fibrillation Reason For Visit: Sepsis/acute kidney injury/dehydration/pneumonia/P Narrative: This is a 75-year-old patient with COVID pneumonia who I am seeing at the request of Haresh Lewis for my advice regarding management of his atrial fibrillation. He presented to the emergency department with a complaint of chest congestion and cough. He was found to have pneumonia and was started on IV antibiotics with a COVID test pending. He was admitted to the hospital for further management since has required escalating oxygen requirements and is currently on BiPAP. His COVID test was found to be positive. Apparently, he did receive a vaccination. He also has acute kidney injury. Yesterday, he developed tachycardia and there was concern for atrial fibrillation or atrial flutter on his telemetry. History is difficult to obtain from the patient as he is very confused but he does tell me that he does not have any history of atrial fibrillation or any cardiac problems. He denies any feelings of palpitations. He is obviously short of breath due to his severe pneumonia. Review of Systems Review of Systems: ROS unobtainable: Yes unobtainable due to mental status PMFSH Past Medical History Medical History Anxiety BMI 34.0-34.9,adult BMI 35.0-35.9,adult Chronic kidney disease, stage 4 (severe) Chronic low back pain CKD (chronic kidney disease) Colon cancer screening Depression DM type 2 (diabetes mellitus, type 2) Encounter for routine adult health examination without abnormal findings Falls GERD (gastroesophageal reflux disease) HTN (hypertension) Hyperlipidemia Impaired functional mobility, balance, gait, and endurance On [facility] drug therapy Peripheral neuropathy Pre-operative cardiovascular examination Family History Family History Mother Diabetes mellitus Family history of Alzheimer's disease Father Carcinoma of colon Other Hypertension Social History Social History Smoking status: Never smoker Second hand tobacco smoke exposure: No Alcohol intake: former Drinks per week: 20 Substance use: never Last use: last alcoholic drink was 06/18/2020 Living arrangements: with family Additional living arrangements comments: Lives with Lore. Occupation/Education: retired Additional occupation/education comments: Retired for 27 years now. Worked for [employer]. Gender identity (if verbalized by the patient): Male Spiritual care concerns: No Meds Home Medications and Allergies Home Medications Medication Instructions Recorded Confirmed Type fexofenadine 180 mg tablet 180 mg PO DAILY #30 tablet 04/14/19 12/03/20 Rx losartan 100 mg tablet 100 mg PO DAILY #90 tablet 03/21/20 12/03/20 Rx esomeprazole magnesium 40 mg 40 mg PO DAILY #90 cap 04/30/20 12/03/20 Rx capsule,delayed release simvastatin 20 mg tablet 20 mg PO DAILY #90 tablet 04/30/20 12/03/20 Rx cyclobenzaprine 10 mg tablet See Rx Instructions .ROUTE 09/24/20
[2020-12-05] MEDS: INSULIN ASPART (*BKC) 100 UNITS/ML 10 UNITS SUB-Q (17:17)
[2020-12-05] MEDS: LORazepam (*CRX) 0.5 MG TABLET PO (17:17)
[2020-12-05 18:18] LABS: Glucose Point of Care 289 mg/dl (65-105)
[2020-12-05] MEDS: dexmedeTOMIDine 400 MCG/100 ML 400 MCG/100 ML BAG 18.81 MCG IV CONT ×2 (21:02→23:08)
[2020-12-05] MEDS: INSULIN GLARGINE (*BKC) 100 UNITS/ML 20 UNITS SUB-Q (21:08)
[2020-12-06] VITALS (35 sets, daily range): BP systolic 102–134; BP diastolic 62–84; PULSE 66–98; RESP 14–28; TEMP 35.1–36.4; O2SAT 92–99
[2020-12-06 00:14] LABS: Glucose Point of Care 226 mg/dl (65-105)
[2020-12-06] MEDS: IPRATROPIUM BR 0.02% INH SOLN 0.5 MG/2.5 ML VIAL INHALATION ×6 (00:49→20:06)
[2020-12-06] MEDS: SODIUM BICARBONATE 8.4% 75 MEQ in WATER, STERILE FOR INJECTION 1,000 ML 100 MEQ IV CONT ×3 (01:02→22:12)
[2020-12-06 05:31] LABS: Hematocrit 39.4 % (42.0-52.0); Hemoglobin 13.3 g/dL (14.0-18.0); Mean Corpuscular HGB Conc 33.8 g/dl (32-36); Mean Corpuscular Hemoglobin 30.9 pg (26-34); Mean Corpuscular Volume 91.4 fl (80-100); Mean Platelet Volume 10.7 fl (7.4-10.4); Platelet Count Result 169 k/mm3 (150-375); Red Blood Count 4.31 M/mm3 (4.6-6.20); Red Cell Distribution Width 13.7 % (11.5-14.5); White Blood Count 8.9 K/mm3 (4.5-10.0)
[2020-12-06 06:15] LABS: Alveolar/Arterial O2 Gradient 325.6 mmHg; Base Excess ABG -7.3 mEq/l (+/-2.0); Carboxyhemoglobin 0.4 % THb (0-2.0); Device NON-INVASIVE VENT; Fractional Inspired Oxygen 60 %; HCO3 ABG 17.4 mEq/l (22.0-26.0); Methemoglobin ABG 0.3 %THb (0-1.5); Non-Invasive Vent Rate 4 /MIN; Oxygen Content ABG 17.5 %vol (16.0-22.0); Oxygen Saturation ABG 92.3 % (95.0-100.0); Oxyhemoglobin 91.3 % THb (90.0-100.0); PCO2 ABG 32.8 mmHg (35.0-45.0); PO2 ABG 66.1 mmHg (80.0-100.0); Site Drawn RIGHT BRACHIAL; Total Hemoglobin 13.6 g/dL (12.0-18.0); pH ABG 7.342 (7.350-7.450)
[2020-12-06 06:16] LABS: Non-Invasive Expiratory Pressure 10 CMH2O; Non-Invasive Inspiratory Pressure 16 CMH2O
[2020-12-06 06:31] LABS: Alanine Aminotransferase 73 U/L (4-50); Alkaline Phosphatase 54 U/L (38-126); Anion Gap 12 mmol/L (8-16); Aspartate Amino Transferase 169 U/L (17-59); Bilirubin,Total 0.4 mg/dL (0.2-1.3); Blood Urea Nitrogen 109 mg/dL (9-20); CRP 8.9 mg/dL (<1.0); Calcium 7.5 mg/dL (8.4-10.2); Carbon Dioxide 17 mmol/L (22-30); Chloride 109 mmol/L (98-107); Creatine Kinase 2776 U/L (55-170); Estimated CRCL calculation 15 ml/min; Estimated Glomerular Filt Rate 12; Glucose 256 mg/dL (65-110); Magnesium 2.4 mg/dL (1.6-2.3); Phosphorus 5.8 mg/dL (2.5-4.5); Potassium 3.9 mmol/L (3.4-5.0); Sodium 138 mmol/L (137-145)
[2020-12-06 06:59] LABS: Lactate Dehydrogenase 2184 U/L (313-618)
[2020-12-06] MEDS: dexmedeTOMIDine 400 MCG/100 ML 400 MCG/100 ML BAG 18.81 MCG IV CONT (07:17)
[2020-12-06] MEDS: INSULIN ASPART (*BKC) 100 UNITS/ML SUB-Q ×3 (07:20→18:16)
[2020-12-06 08:10] LABS: Basophils Percent Auto 0.1 % (0.2-1.2); Hematocrit 38.9 % (42.0-52.0); Hemoglobin 13.4 g/dL (14.0-18.0); Immature Granulocyte Absolute 0.08 K/mm3 (0.00-0.031); Lymphocytes Percent Auto 3.7 % (18.3-44.2); Mean Corpuscular HGB Conc 34.4 g/dl (32-36); Mean Corpuscular Hemoglobin 30.9 pg (26-34); Mean Corpuscular Volume 89.8 fl (80-100); Monocytes Absolute Auto 0.7 K/mm3 (0.1-0.6); Monocytes Percent Auto 8.2 % (2.6-8.5); Platelet Count Result 159 k/mm3 (150-375); Red Blood Count 4.33 M/mm3 (4.6-6.20); Red Cell Distribution Width 13.6 % (11.5-14.5)
[2020-12-06 08:23] LABS: Prothrombin Time 12.6 Seconds (11.1-14.7)
[2020-12-06 08:24] LABS: Partial Thromboplastin Time 42.3 SECONDS (22.3-36.8)
--- NOTE | 2020-12-06 09:02 | PM.PNNEP ---
Progress Note: A&P Assessment and Plan (1) Acute renal failure: Code(s): N17.9 - Acute kidney failure, unspecified Status: Acute Assessment and Plan: Patient has acute kidney injury. Several issues are occurring. The patient has COVID. Sometimes this can directly affect the kidneys or the inflammation associated therewith can cause some kidney damage. patient has the elevated CPK. He is getting a bicarb drip. His intake/ output is positive. Will give some Lasix to keep his urine output going so we can continue the bicarb drip. I fear overloading him because of the COVID. We considered hemodialysis yesterday but today his creatinine is a little bit better and he still making urine. So will try diuretics 1st. (2) Chronic kidney disease, stage 4 (severe): Code(s): N18.4 - Chronic kidney disease, stage 4 (severe) Status: Acute Assessment and Plan: He has chronic kidney disease stage 4 from diabetes and hypertension. His baseline GFR is around 23. This was the value in early October in the office. (3) Pneumonia due to COVID-19 virus: Code(s): U07.1 - COVID-19; J12.82 - Pneumonia due to coronavirus disease 2019 Status: Acute Assessment and Plan: The patient has the COVID. He is getting dexamethasone, supportive respiratory care, and is on isolation. (4) Rhabdomyolysis: Code(s): M62.82 - Rhabdomyolysis Status: Acute Assessment and Plan: The patient has rhabdomyolysis. His CPK is down a little bit. Will keep an eye on this. (5) Hematuria: Code(s): R31.9 - Hematuria, unspecified Status: Acute Assessment and Plan: This may be from the rhabdo. (6) GERD (gastroesophageal reflux disease): Qualifiers: Esophagitis presence: esophagitis presence not specified Qualified Code(s): K21.9 - Gastro-esophageal reflux disease without esophagitis Code(s): K21.9 - Gastro-esophageal reflux disease without esophagitis Status: Acute Assessment and Plan: The patient is on Pepcid (7) DM type 2 (diabetes mellitus, type 2): Qualifiers: Diabetes mellitus fdc insulin use: with long term care social worker use Diabetes mellitus complication status: with ophthalmic complications Diabetes mellitus complication detail: with diabetic retinopathy Diabetic retinopathy severity: with unspecified retinopathy severity Diabetes mellitus macular edema: macular edema presence unspecified Laterality: unspecified laterality Qualified Code(s): E11.319 - Type 2 diabetes mellitus with unspecified diabetic retinopathy without macular edema; Z79.4 - salvage determiner (current) use of insulin Code(s): E11.9 - Type 2 diabetes mellitus without complications Status: Acute Assessment and Plan: He is on Accu-Cheks and sliding-scale insulin (8) Hyperlipidemia: Qualifiers: Hyperlipidemia type: unspecified Qualified Code(s): E78.5 - Hyperlipidemia, unspecified Code(s): E78.5 - Hyperlipidemia, unspecified Status: Acute Assessment and Plan: We are holding the statin for now Subjective Date/time seen: 12/06/20 09:02 Interval history: Patient is on Precedex. He is comfortable on the BiPAP mask. Oxygenation is good. Thanks to the Precedex, he is not pulling at his BiPAP machine anymore and has had a fairly stable night. Exam Narrative: WDWN in NAD on the BiPAP machine skin no rash head ncat lungs clear cor reg no rub abd BS+ nontender and soft ext no edema. Objective Data Vital Signs Vital Signs: Vital Signs - 24 hr 12/05/20 10:00 12/05/20 11:59 12/05/20 12:00 Temperature 36.3 C L Pulse Rate 120 H 105 H 110 H Respiratory Rate 20 22 H Blood Pressure 129/54 L Pulse Oximetry 90 12/05/20 12:09 12/05/20 14:00 12/05/20 16:00 Temperature 36.8 C Pulse Rate 114 H 108 H 114 H Respiratory Rate 20 24 H Blood Pressure 137/68 Pulse Oximetry 90
[2020-12-06] MEDS: HEPARIN SOD/D5W 100 UNITS/ML 25,000 UNITS/250 ML BAG 15 UNITS IV CONT (09:05)
[2020-12-06] MEDS: PANTOPRAZOLE SODIUM IV 40 MG VIAL IV PUSH (09:05)
--- NOTE | 2020-12-06 09:53 | WPDCNINT ---
Assessment and Plan Assessment and plan (1) Acute respiratory failure: Code(s): J96.00 - Acute respiratory failure, unspecified whether with hypoxia or hypercapnia Status: Acute Assessment and Plan: Acute hypoxic respiratory failure, failed Airvo, high-flow therapy with non-rebreather mask as he was pulling on it. Patient was put on BiPAP, and started on Precedex infusion which she is tolerating. -continue BiPAP 02/02, 60% FiO2 -continue bronchodilators and Pulmicort -chest x-ray and ABGs reviewed -continue Precedex infusion (2) Pneumonia due to COVID-19 virus: Code(s): U07.1 - COVID-19; J12.82 - Pneumonia due to coronavirus disease 2019 Status: Acute Assessment and Plan: Patient tested positive for SARS-CoV-2 PCR on 12/03/2020 -continue droplet, airborne and contact isolation/precautions -patient has been started on dexamethasone which was initiated on 12/04 -patient not a candidate for remdesivir given his renal dysfunction (3) Delirium: Code(s): R41.0 - Disorientation, unspecified Status: Acute Assessment and Plan: Patient was delirious and agitated, pulling on his Airvo and non-rebreather. He was also putting on his BiPAP mask. -patient was started on Precedex infusion, is more compliant with the BiPAP (4) Chronic kidney disease, stage 4 (severe): Code(s): N18.4 - Chronic kidney disease, stage 4 (severe) Status: Acute Assessment and Plan: Stage 4 chronic kidney disease with acute insult likely related to COVID pneumonia, hypovolemia 2nd decreased p.o. intake fluids rhabdomyolysis as his CK levels are elevated. -renal ultrasound showed bilateral increased renal cortical echogenicity consistent with chronic medical renal disease. No hydronephrosis. -urine lytes not showing a prerenal picture -nephrology following the patient, -nephrology has ordered Bumex, if he fails diuresis with improvement in his renal function, he will most likely require dialysis (5) Rhabdomyolysis: Code(s): M62.82 - Rhabdomyolysis Status: Acute Assessment and Plan: Could sodium bicarb infusion per Nephrology (6) Acute hyperglycemia: Code(s): R73.9 - Hyperglycemia, unspecified Status: Acute Assessment and Plan: Likely related to dexamethasone, will add sliding scale insulin and Accu-Chek -added Lantus (7) Atrial fibrillation with RVR: Code(s): I48.91 - Unspecified atrial fibrillation Status: Acute Assessment and Plan: Patient had tachycardia on 12/05/2020 -cardiology was consulted, appreciate their evaluation and recommendation -started on metoprolol and Eliquis -patient unable to take p.o. at this time, -currently in AFib rate controlled. -Eliquis held, will start heparin infusion (8) DVT prophylaxis: Code(s): Z29.9 - Encounter for prophylactic measures, unspecified Status: Acute Assessment and Plan: On heparin infusion Additional Plan Stress ulcer prophylaxis, Protonix Code status: Full code Critical care time spent: 44 minute This dictation may have been done utilizing a voice recognition system. Attempts have been made to correct errors. However, there may be uncorrected grammatical, spelling, and recognition errors present. Due to a high probability of clinically significant, life threatening deterioration, the patient required my highest level of preparedness to intervene emergently and I personally spent this critical care time directly and personally managing the patient. This critical care time included obtaining a history; examining the patient; pulse oximetry; ordering and review of studies; arranging urgent treatment with development of a management plan; evaluation of patient's response to treatment; frequent reassessment; and discussions with other providers. It was exclusive of separately billable procedures and treating other patients and teaching time. Please see Assessment and Plan se
[2020-12-06 10:18] LABS: SARS-CoV-2 IgG Reactive (NonReactive)
[2020-12-06] MEDS: BUMETANIDE INJ 1 MG/4 ML VIAL IV PUSH ×2 (10:47→17:04)
[2020-12-06 11:24] LABS: Ferritin > 2000 ng/mL (26-388)
[2020-12-06] MEDS: dexmedeTOMIDine 400 MCG/100 ML 400 MCG/100 ML BAG 21.5 MCG IV CONT ×2 (11:34→15:59)
[2020-12-06 12:05] LABS: Glucose Point of Care 316 mg/dl (65-105)
--- NOTE | 2020-12-06 15:23 | PCPTNOTE ---
PT on hold due to decline in medical status and transfer to ICU.
[2020-12-06 16:55] LABS: Partial Thromboplastin Time > 200.0 SECONDS (22.3-36.8)
--- NOTE | 2020-12-06 17:15 | PM.IMPN ---
Progress Note: A&P Assessment and Plan (1) Pneumonia due to COVID-19 virus: Code(s): U07.1 - COVID-19; J12.82 - Pneumonia due to coronavirus disease 2018 Status: Acute Assessment and Plan: Chest x-ray unchanged today. Patient on a BiPAP and oxygen saturations 95% -continue Decadron, pt unable to receive Remdesivir due to kidney function -no indication for antibiotics at this time - NGTD -Pt has AMS, likely due to COVID, uremia and hospital delirium. His initial CT of the brain is negative for acute pathology -spoke with the family about plan of care. They would like him to be a full code. He was vaccinated with Moderna back in May and June -Pt has been afebrile since 12/04 at 1600 -antibodies positive, no indication for plasma -heparin drip for anticoagulation (2) Acute respiratory failure: Code(s): J96.00 - Acute respiratory failure, unspecified whether with hypoxia or hypercapnia Status: Acute Assessment and Plan: Acute hypoxic respiratory failure, failed Airvo, high-flow therapy with non-rebreather mask as he was pulling on it. Patient was put on BiPAP, and started on Precedex infusion which she is tolerating. -as above (3) DM type 2 (diabetes mellitus, type 2): Qualifiers: Diabetes mellitus assistant terminal manager insulin use: with jail use Diabetes mellitus complication status: with ophthalmic complications Diabetes mellitus complication detail: with diabetic retinopathy Diabetic retinopathy severity: with unspecified retinopathy severity Diabetes mellitus macular edema: macular edema presence unspecified Laterality: unspecified laterality Qualified Code(s): E11.319 - Type 2 diabetes mellitus with unspecified diabetic retinopathy without macular edema; Z79.4 - [facility] (current) use of insulin Code(s): E11.9 - Type 2 diabetes mellitus without complications Status: Acute Assessment and Plan: Last glucose 316 -after speaking to the son, he apparently takes Tresiba 44 units and Ozempic (dose unknown) -Lantus increased -a1c 6.5, acute hyperglycemia likely due to infection and steroids -continue scheduled insulin as well as sliding scale -consider tube feeds soon if patient is unable to eat (4) Delirium: Code(s): R41.0 - Disorientation, unspecified Status: Acute Assessment and Plan: As above -continue Precedex (5) Chronic kidney disease, stage 4 (severe): Code(s): N18.4 - Chronic kidney disease, stage 4 (severe) Status: Acute Assessment and Plan: Slight improvement overnight -Pt baseline 2.3-2.[address] Capellan -He is making urine -co2 low,likely due to renal failure. Continue IV bicarb -ck elevated -nephrology on board -renal ultrasound showed bilateral increased renal cortical echogenicity consistent with chronic medical renal disease. No hydronephrosis. -nephrology has ordered Bumex, if he fails diuresis with improvement in his renal function, he will most likely require dialysis (6) Rhabdomyolysis: Code(s): M62.82 - Rhabdomyolysis Status: Acute Assessment and Plan: Could sodium bicarb infusion per Nephrology (7) Atrial fibrillation with RVR: Code(s): I48.91 - Unspecified atrial fibrillation Status: Acute Assessment and Plan: Patient had tachycardia on 12/05/2020 -cardiology was consulted, appreciate their evaluation and recommendation -oral metoprolol unable to be given, will order p.r.n. metoprolol for tachycardia although this has resolved -Eliquis on hold, continue heparin (8) DVT prophylaxis: Code(s): Z29.9 - Encounter for prophylactic measures, unspecified Status: Acute Assessment and Plan: On heparin infusion Subjective Date/time seen: 12/06/20 17:16 Interval history: Pt is a 75-year-old male here for COVID PNA. Patient was seen today and is on Precedex. RN Roxi at bedside states that he is making
[2020-12-06 18:17] LABS: Glucose Point of Care 352 mg/dl (65-105)
[2020-12-06] MEDS: dexmedeTOMIDine 400 MCG/100 ML 400 MCG/100 ML BAG 32.25 MCG IV CONT ×2 (22:12→23:26)
[2020-12-06] MEDS: INSULIN GLARGINE (*BKC) 100 UNITS/ML 26 UNITS SUB-Q (22:18)
[2020-12-07] VITALS (35 sets, daily range): BP systolic 115–142; BP diastolic 64–102; PULSE 75–98; RESP 15–26; TEMP 35.8–36.9; O2SAT 90–98
[2020-12-07] MEDS: INSULIN ASPART (*BKC) 100 UNITS/ML SUB-Q ×4 (00:09→18:36)
[2020-12-07 00:31] LABS: Glucose Point of Care 333 mg/dl (65-105)
[2020-12-07] MEDS: dexmedeTOMIDine 400 MCG/100 ML 400 MCG/100 ML BAG 32.25 MCG IV CONT ×2 (01:48→07:56)
[2020-12-07 02:11] LABS: Partial Thromboplastin Time 165.4 SECONDS (22.3-36.8)
[2020-12-07] MEDS: HEPARIN SOD/D5W 100 UNITS/ML 25,000 UNITS/250 ML BAG 9 UNITS IV CONT (02:24)
[2020-12-07] MEDS: IPRATROPIUM BR 0.02% INH SOLN 0.5 MG/2.5 ML VIAL INHALATION ×4 (02:46→20:21)
[2020-12-07 05:08] LABS: Basophils Percent Auto 0.1 % (0.2-1.2); Hematocrit 29.4 % (42.0-52.0); Hemoglobin 10.2 g/dL (14.0-18.0); Immature Granulocyte Absolute 0.11 K/mm3 (0.00-0.031); Immature Granulocyte Percent A 1.3 % (0-0.5); Lymphocytes Absolute Auto 0.18 K/mm3 (0.9-3.2); Lymphocytes Percent Auto 2.1 % (18.3-44.2); Mean Corpuscular HGB Conc 34.7 g/dl (32-36); Mean Corpuscular Hemoglobin 30.7 pg (26-34); Mean Corpuscular Volume 88.6 fl (80-100); Mean Platelet Volume 11.4 fl (7.4-10.4); Monocytes Absolute Auto 0.6 K/mm3 (0.1-0.6); Monocytes Percent Auto 6.3 % (2.6-8.5); Neutrophils Absolute Auto 7.8 K/mm3 (1.3-6.7); Neutrophils Percent Auto 90.2 % (45.5-73.1); Platelet Count Result 126 k/mm3 (150-375); Red Blood Count 3.32 M/mm3 (4.6-6.20); Red Cell Distribution Width 13.3 % (11.5-14.5); White Blood Count 8.7 K/mm3 (4.5-10.0)
[2020-12-07 08:33] LABS: Glucose Point of Care 267 mg/dl (65-105)
[2020-12-07 08:35] LABS: Alanine Aminotransferase 60 U/L (4-50); Albumin Level 2.7 g/dL (3.5-5.1); Alkaline Phosphatase 53 U/L (38-126); Anion Gap 12 mmol/L (8-16); Aspartate Amino Transferase 88 U/L (17-59); Bilirubin,Total 0.4 mg/dL (0.2-1.3); Blood Urea Nitrogen 115 mg/dL (9-20); Calcium 6.8 mg/dL (8.4-10.2); Carbon Dioxide 22 mmol/L (22-30); Chloride 100 mmol/L (98-107); Creatine Kinase 915 U/L (55-170); Estimated CRCL calculation 15 ml/min; Estimated Glomerular Filt Rate 11; Glucose 291 mg/dL (65-110); Magnesium 1.9 mg/dL (1.6-2.3); Phosphorus 5.1 mg/dL (2.5-4.5); Potassium 3.5 mmol/L (3.4-5.0); Sodium 134 mmol/L (137-145)
[2020-12-07 08:39] LABS: Lactate Dehydrogenase 2020 U/L (313-618)
[2020-12-07] MEDS: PANTOPRAZOLE SODIUM IV 40 MG VIAL IV PUSH (08:46)
[2020-12-07] MEDS: BUMETANIDE INJ 1 MG/4 ML VIAL IV PUSH ×2 (08:47→17:39)
[2020-12-07] MEDS: SODIUM BICARBONATE 8.4% 75 MEQ in WATER, STERILE FOR INJECTION 1,000 ML 100 MEQ IV CONT (08:48)
[2020-12-07 10:50] LABS: Partial Thromboplastin Time 88.1 SECONDS (22.3-36.8)
--- NOTE | 2020-12-07 12:08 | WPDINTPN ---
Progress Note: A&P Assessment and Plan (1) Acute respiratory failure: Code(s): J96.00 - Acute respiratory failure, unspecified whether with hypoxia or hypercapnia Status: Acute Assessment and Plan: Acute hypoxic respiratory failure, failed Airvo, high-flow therapy with non-rebreather mask as he was pulling on it. Patient was put on BiPAP, and started on Precedex infusion which she is tolerating. -continue BiPAP /, 50% FiO2 -will switch to high-flow therapy -continue bronchodilators and Pulmicort -chest x-ray and ABGs reviewed -continue Precedex infusion (2) Pneumonia due to COVID-19 virus: Code(s): U07.1 - COVID-19; J12.82 - Pneumonia due to coronavirus disease 2019 Status: Acute Assessment and Plan: Patient tested positive for SARS-CoV-2 PCR on 12/03/2020 -continue droplet, airborne and contact isolation/precautions -patient has been started on dexamethasone which was initiated on 12/04 -patient not a candidate for remdesivir given his renal dysfunction (3) Delirium: Code(s): R41.0 - Disorientation, unspecified Status: Acute Assessment and Plan: Patient was delirious and agitated, pulling on his Airvo and non-rebreather. He was also putting on his BiPAP mask. -patient was started on Precedex infusion, is more compliant with the BiPAP and now on high-flow therapy (4) Chronic kidney disease, stage 4 (severe): Code(s): N18.4 - Chronic kidney disease, stage 4 (severe) Status: Acute Assessment and Plan: Stage 4 chronic kidney disease with acute insult likely related to COVID pneumonia, hypovolemia 2nd decreased p.o. intake fluids rhabdomyolysis as his CK levels are elevated. -renal ultrasound showed bilateral increased renal cortical echogenicity consistent with chronic medical renal disease. No hydronephrosis. -urine lytes not showing a prerenal picture -nephrology following the patient, -nephrology has ordered Bumex, if he fails diuresis with improvement in his renal function, he will most likely require dialysis (5) Rhabdomyolysis: Code(s): M62.82 - Rhabdomyolysis Status: Acute Assessment and Plan: Could sodium bicarb infusion per Nephrology -CK levels trending down (6) Acute hyperglycemia: Code(s): R73.9 - Hyperglycemia, unspecified Status: Deleted Assessment and Plan: Likely related to dexamethasone, will add sliding scale insulin and Accu-Chek -Lantus (7) Atrial fibrillation with RVR: Code(s): I48.91 - Unspecified atrial fibrillation Status: Acute Assessment and Plan: Patient had tachycardia on 12/05/2020 -cardiology was consulted, appreciate their evaluation and recommendation -started on metoprolol and Eliquis -patient unable to take p.o. at this time, -currently in AFib rate controlled. -Eliquis held, continue heparin infusion (8) DVT prophylaxis: Code(s): Z29.9 - Encounter for prophylactic measures, unspecified Status: Acute Assessment and Plan: On heparin infusion Additional Plan Stress ulcer prophylaxis, Protonix Code status: Full code Critical care time spent: 32 minutes This dictation may have been done utilizing a voice recognition system. Attempts have been made to correct errors. However, there may be uncorrected grammatical, spelling, and recognition errors present. Due to a high probability of clinically significant, life threatening deterioration, the patient required my highest level of preparedness to intervene emergently and I personally spent this critical care time directly and personally managing the patient. This critical care time included obtaining a history; examining the patient; pulse oximetry; ordering and review of studies; arranging urgent treatment with development of a management plan; evaluation of patient's response to treatment; frequent reassessment; and discussions with other providers. It was exclusive of separately billable proced
[2020-12-07 12:09] LABS: Glucose Point of Care 255 mg/dl (65-105)
[2020-12-07 12:14] LABS: Hematocrit 25.5 % (42.0-52.0); Hemoglobin 9.1 g/dL (14.0-18.0)
[2020-12-07] MEDS: dexmedeTOMIDine 400 MCG/100 ML 400 MCG/100 ML BAG 18.81 MCG IV CONT ×3 (12:24→23:06)
--- NOTE | 2020-12-07 12:28 | PM.PNNEP ---
Progress Note: A&P Assessment and Plan (1) Acute renal failure: Code(s): N17.9 - Acute kidney failure, unspecified Status: Acute Assessment and Plan: Patient has acute kidney injury. Several issues are occurring. The patient has COVID. Sometimes this can directly affect the kidneys or the inflammation associated therewith can cause some kidney damage. patient has the elevated CPK. He is getting a bicarb drip. His CPK is a below a 1000 now. I think the risks of a bicarb drip per higher than the benefit at this point. Continue supportive care hold off on dialysis for the time being. Discussed with Dr Abebe (2) Chronic kidney disease, stage 4 (severe): Code(s): N18.4 - Chronic kidney disease, stage 4 (severe) Status: Acute Assessment and Plan: He has chronic kidney disease stage 4 from diabetes and hypertension. His baseline GFR is around 23. This was the value in early October in the office. (3) Pneumonia due to COVID-19 virus: Code(s): U07.1 - COVID-19; J12.82 - Pneumonia due to coronavirus disease 2019 Status: Acute Assessment and Plan: The patient has the COVID. He is getting dexamethasone, supportive respiratory care, and is on isolation. (4) Rhabdomyolysis: Code(s): M62.82 - Rhabdomyolysis Status: Acute Assessment and Plan: The patient has rhabdomyolysis. His CPK is down below 1000. (5) Hematuria: Code(s): R31.9 - Hematuria, unspecified Status: Acute Assessment and Plan: This may be from the rhabdo. (6) GERD (gastroesophageal reflux disease): Qualifiers: Esophagitis presence: esophagitis presence not specified Qualified Code(s): K21.9 - Gastro-esophageal reflux disease without esophagitis Code(s): K21.9 - Gastro-esophageal reflux disease without esophagitis Status: Acute Assessment and Plan: The patient is on Pepcid (7) DM type 2 (diabetes mellitus, type 2): Qualifiers: Diabetes mellitus complication detail: with diabetic retinopathy Diabetes mellitus complication status: with ophthalmic complications Diabetes mellitus intermediate project manager insulin use: with intermediate project manager use Diabetes mellitus macular edema: macular edema presence unspecified Diabetic retinopathy severity: with unspecified retinopathy severity Laterality: unspecified laterality Qualified Code(s): E11.319 - Type 2 diabetes mellitus with unspecified diabetic retinopathy without macular edema; Z79.4 - terminal press operator (current) use of insulin Code(s): E11.9 - Type 2 diabetes mellitus without complications Status: Acute Assessment and Plan: He is on Accu-Cheks and sliding-scale insulin (8) Hyperlipidemia: Qualifiers: Hyperlipidemia type: unspecified Qualified Code(s): E78.5 - Hyperlipidemia, unspecified Code(s): E78.5 - Hyperlipidemia, unspecified Status: Acute Assessment and Plan: We are holding the statin for now Subjective Date/time seen: 12/07/20 12:28 Interval history: Patient is on Precedex. He is comfortable With just oxygen per high-flow nasal cannula. Exam Narrative: WDWN in NAD on the BiPAP machine skin no rash head ncat lungs clear to auscultation cor reg no rub or gallop abd BS+ nontender and soft ext no edema. Objective Data Vital Signs Vital Signs: Vital Signs - 24 hr 12/06/20 14:00 12/06/20 14:16 12/06/20 14:18 Temperature 35.1 C L Pulse Rate 85 73 74 Respiratory Rate 16 28 H 16 Blood Pressure 127/81 Pulse Oximetry 95 92 12/06/20 15:59 12/06/20 16:00 12/06/20 18:00 Temperature 35.1 C L 35.1 C L Pulse Rate 85 80 80 Respiratory Rate 16 16 16 Blood Pressure 102/62 102/62 Pulse Oximetry 95 95 12/06/20 18:25 12/06/20 20:00 12/06/20 20:07 Temperature 36.2 C L Pulse Rate 80 83 80 Respiratory Rate 16 16 17 Blood Pressure 126/78 Pulse Oximetry 99 12/06/20 20:15 12/06/20 22:00
[2020-12-07 18:33] LABS: Glucose Point of Care 225 mg/dl (65-105)
[2020-12-07] MEDS: INSULIN GLARGINE (*BKC) 100 UNITS/ML 40 UNITS SUB-Q (20:45)
[2020-12-07 23:55] LABS: Glucose Point of Care 208 mg/dl (65-105)
[2020-12-08] VITALS (27 sets, daily range): BP systolic 81–148; BP diastolic 52–110; PULSE 72–106; RESP 16–26; TEMP 35.9–37.5; O2SAT 86–98
[2020-12-08] MEDS: INSULIN ASPART (*BKC) 100 UNITS/ML SUB-Q
[2020-12-08 04:00] LABS: Alveolar/Arterial O2 Gradient 554.3 mmHg; Base Excess ABG 0.1 mEq/l (+/-2.0); Carboxyhemoglobin 0.9 % THb (0-2.0); Fractional Inspired Oxygen 90 %; HCO3 ABG 23.5 mEq/l (22.0-26.0); Methemoglobin ABG 0.3 %THb (0-1.5); Oxygen Content ABG 17.6 %vol (16.0-22.0); Oxygen Saturation ABG 88.7 % (95.0-100.0); Oxyhemoglobin 86.6 % THb (90.0-100.0); PCO2 ABG 34.5 mmHg (35.0-45.0); PO2 FiO2 Ratio Arterial Blood 0.58 %; Reduced Hemoglobin 12.2 %THb (0-5.0); Total Hemoglobin 14.5 g/dL (12.0-18.0); pH ABG 7.451 (7.350-7.450)
[2020-12-08 04:02] LABS: Device HIGH FLOW THERAPY; Modified Allen's Test Pass; Site Drawn LEFT RADIAL
[2020-12-08] MEDS: dexmedeTOMIDine 400 MCG/100 ML 400 MCG/100 ML BAG 10.75 MCG IV CONT (06:51)
[2020-12-08 06:53] LABS: Basophils Percent Auto 0.2 % (0.2-1.2); Eosinophils Absolute Auto 0.3 K/mm3 (0-0.3); Eosinophils Percent Auto 2.7 % (0-4.4); Hematocrit 36.5 % (42.0-52.0); Hemoglobin 11.8 g/dL (14.0-18.0); Immature Granulocyte Absolute 0.33 K/mm3 (0.00-0.031); Immature Granulocyte Percent A 2.7 % (0-0.5); Lymphocytes Absolute Auto 0.14 K/mm3 (0.9-3.2); Lymphocytes Percent Auto 1.1 % (18.3-44.2); Mean Corpuscular HGB Conc 32.3 g/dl (32-36); Mean Corpuscular Hemoglobin 30.6 pg (26-34); Mean Corpuscular Volume 94.6 fl (80-100); Mean Platelet Volume 10.8 fl (7.4-10.4); Monocytes Absolute Auto 0.3 K/mm3 (0.1-0.6); Monocytes Percent Auto 2.7 % (2.6-8.5); Neutrophils Absolute Auto 11.2 K/mm3 (1.3-6.7); Neutrophils Percent Auto 90.6 % (45.5-73.1); Platelet Count Result 131 k/mm3 (150-375); Red Blood Count 3.86 M/mm3 (4.6-6.20); Red Cell Distribution Width 13.8 % (11.5-14.5); White Blood Count 12.3 K/mm3 (4.5-10.0)
[2020-12-08] MEDS: IPRATROPIUM BR 0.02% INH SOLN 0.5 MG/2.5 ML VIAL INHALATION ×2 (08:19→13:50)
[2020-12-08] MEDS: FLUTICASONE PROPIONATE 0.05% NA SPR 16 GM BTL (*BKC) 2 SPRAY NASAL (09:43)
[2020-12-08] MEDS: PANTOPRAZOLE SODIUM IV 40 MG VIAL IV PUSH (09:44)
--- NOTE | 2020-12-08 09:48 | PM.IMPN ---
Progress Note: A&P Assessment and Plan (1) Pneumonia due to COVID-19 virus: Code(s): U07.1 - COVID-19; J12.82 - Pneumonia due to coronavirus disease 2018 Status: Acute Assessment and Plan: Chest x-ray unchanged today the patient appears to be doing well -continue Decadron, pt unable to receive Remdesivir due to kidney function -no indication for antibiotics at this time - NGTD -altered mental status result -He was vaccinated with Moderna back in May and June. Antibodies positive, no indication for plasma -Pt has been afebrile since 12/04 at 1600 (2) Acute respiratory failure: Code(s): J96.00 - Acute respiratory failure, unspecified whether with hypoxia or hypercapnia Status: Acute Assessment and Plan: Secondary to above (3) DM type 2 (diabetes mellitus, type 2): Qualifiers: Diabetes mellitus director long term care insulin use: with snf use Diabetes mellitus complication status: with ophthalmic complications Diabetes mellitus complication detail: with diabetic retinopathy Diabetic retinopathy severity: with unspecified retinopathy severity Diabetes mellitus macular edema: macular edema presence unspecified Laterality: unspecified laterality Qualified Code(s): E11.319 - Type 2 diabetes mellitus with unspecified diabetic retinopathy without macular edema; Z79.4 - custodial (current) use of insulin Code(s): E11.9 - Type 2 diabetes mellitus without complications Status: Acute Assessment and Plan: Last glucose 208 last night, awaiting today's read -after speaking to the son, he apparently takes Tresiba 44 units and Ozempic (dose unknown) -Lantus increased to 40 units -a1c 6.5, acute hyperglycemia likely due to infection and steroids -continue scheduled insulin as well as sliding scale (4) Delirium: Code(s): R41.0 - Disorientation, unspecified Status: Acute Assessment and Plan: Resolved -continue to wean Precedex (5) Chronic kidney disease, stage 4 (severe): Code(s): N18.4 - Chronic kidney disease, stage 4 (severe) Status: Acute Assessment and Plan: Kidney function pending for today -Pt baseline 2.3-2.[address] Capellan -He is making urine, he had out 1400 yesterday but 1800 already today -ck elevated -nephrology on board -renal ultrasound showed bilateral increased renal cortical echogenicity consistent with chronic medical renal disease. No hydronephrosis. (6) Rhabdomyolysis: Code(s): M62.82 - Rhabdomyolysis Status: Acute Assessment and Plan: Monitor (7) Atrial fibrillation with RVR: Code(s): I48.91 - Unspecified atrial fibrillation Status: Acute Assessment and Plan: Patient had tachycardia on 12/05/2020 -appears to be in normal sinus rhythm now, will obtain EKG -cardiology was consulted, appreciate their evaluation and recommendation -metoprolol oral is on hold. Patient has not been on this medication but has been on Precedex. We will see how his heart rate does. There is p.r.n. metoprolol orders for significant tachycardia -Eliquis on hold, may consider prophylactic heparin depending on how his kidney function is with this morning's labs (8) DVT prophylaxis: Code(s): Z29.9 - Encounter for prophylactic measures, unspecified Status: Acute Assessment and Plan: Await morning labs, consider prophylactic heparin for DVT prophylaxis Subjective Date/time seen: 12/08/20 09:48 Interval history: Pt is a 75-year-old male here for COVID PNA. Patient was seen today and was calm and cooperative and answered all questions. He states that he feels weak but overall feels okay. He still coughs and occasionally feels short of breath. He had a big bowel today. He denies nausea, vomiting, fevers, chills, chest pain or hallucinations Exam Narrative: General: Patient resting comfortably on high-flow 02 in no acute d
[2020-12-08 09:57] LABS: Alanine Aminotransferase 67 U/L (4-50); Alkaline Phosphatase 64 U/L (38-126); Anion Gap 14 mmol/L (8-16); Aspartate Amino Transferase 93 U/L (17-59); Bilirubin,Total 0.5 mg/dL (0.2-1.3); Blood Urea Nitrogen > 120 mg/dL (9-20); CRP 15.2 mg/dL (<1.0); Calcium 7.3 mg/dL (8.4-10.2); Carbon Dioxide 26 mmol/L (22-30); Chloride 103 mmol/L (98-107); Estimated CRCL calculation 14 ml/min; Estimated Glomerular Filt Rate 11; Glucose 84 mg/dL (65-110); Magnesium 1.9 mg/dL (1.6-2.3); Phosphorus 4.8 mg/dL (2.5-4.5); Potassium 3.9 mmol/L (3.4-5.0); Sodium 143 mmol/L (137-145)
--- NOTE | 2020-12-08 10:32 | PM.PNNEP ---
Progress Note: A&P Assessment and Plan (1) Acute renal failure: Code(s): N17.9 - Acute kidney failure, unspecified Status: Acute Assessment and Plan: Patient has acute kidney injury. Several issues are occurring. The patient has COVID. Sometimes this can directly affect the kidneys or the inflammation associated therewith can cause some kidney damage. patient had the elevated CPK. this is better. Will continue supportive care. No need for dialysis quite yet. Hopefully renal function will improve before he does. Discussed with Dr Abebe (2) Chronic kidney disease, stage 4 (severe): Code(s): N18.4 - Chronic kidney disease, stage 4 (severe) Status: Acute Assessment and Plan: He has chronic kidney disease stage 4 from diabetes and hypertension. His baseline GFR is around 23. This was the value in early October in the office. (3) Pneumonia due to COVID-19 virus: Code(s): U07.1 - COVID-19; J12.82 - Pneumonia due to coronavirus disease 2018 Status: Acute Assessment and Plan: The patient has the COVID. He is getting dexamethasone, supportive respiratory care, and is on isolation. (4) Rhabdomyolysis: Code(s): M62.82 - Rhabdomyolysis Status: Acute Assessment and Plan: The patient has rhabdomyolysis. His CPK is down below 1000. (5) Hematuria: Code(s): R31.9 - Hematuria, unspecified Status: Acute Assessment and Plan: This may be from the rhabdo. (6) GERD (gastroesophageal reflux disease): Qualifiers: Esophagitis presence: esophagitis presence not specified Qualified Code(s): K21.9 - Gastro-esophageal reflux disease without esophagitis Code(s): K21.9 - Gastro-esophageal reflux disease without esophagitis Status: Acute Assessment and Plan: The patient is on Pepcid (7) DM type 2 (diabetes mellitus, type 2): Qualifiers: Diabetes mellitus half-way insulin use: with predatory animal exterminator use Diabetes mellitus complication status: with ophthalmic complications Diabetes mellitus complication detail: with diabetic retinopathy Diabetic retinopathy severity: with unspecified retinopathy severity Diabetes mellitus macular edema: macular edema presence unspecified Laterality: unspecified laterality Qualified Code(s): E11.319 - Type 2 diabetes mellitus with unspecified diabetic retinopathy without macular edema; Z79.4 - assistant terminal manager (current) use of insulin Code(s): E11.9 - Type 2 diabetes mellitus without complications Status: Acute Assessment and Plan: He is on Accu-Cheks and sliding-scale insulin (8) Hyperlipidemia: Qualifiers: Hyperlipidemia type: unspecified Qualified Code(s): E78.5 - Hyperlipidemia, unspecified Code(s): E78.5 - Hyperlipidemia, unspecified Status: Acute Assessment and Plan: We are holding the statin for now Subjective Date/time seen: 12/08/20 10:32 Interval history: Patient is on Precedex. He is comfortable with his high-flow nasal cannula but it is a lot of oxygen. Exam Narrative: WDWN in NAD on the BiPAP machine skin no rash Or subcu nodules head ncat lungs clear to auscultation. Decreased breath sounds at the bases cor reg no rub or gallop abd BS+ nontender and soft ext no edema. Objective Data Vital Signs Vital Signs: Vital Signs - 24 hr 12/07/20 11:00 12/07/20 11:41 12/07/20 12:00 Temperature 36.3 C L Pulse Rate 83 83 80 Respiratory Rate 18 18 15 Blood Pressure 120/64 Pulse Oximetry 90 12/07/20 12:24 12/07/20 12:34 12/07/20 14:00 Temperature 36.3 C L Pulse Rate 83 83 Respiratory Rate 18 26 H Blood Pressure 121/66 Pulse Oximetry 93 94 12/07/20 14:25 12/07/20 14:36 12/07/20 16:00 Temperature 36.2 C L Pulse Rate 80 80 83 Respiratory Rate 19 20 26 H Blood Pressure 120/71 Pulse Oximetry 91 12/07/20 17:00 12/07/20 17:43 12/07/20 18:00 Temperature 36.1 C
[2020-12-08] MEDS: BUMETANIDE INJ 1 MG/4 ML VIAL IV PUSH ×2 (10:44→17:10)
--- NOTE | 2020-12-08 11:51 | WPDINTPN ---
Progress Note: A&P Assessment and Plan (1) Acute respiratory failure: Code(s): J96.00 - Acute respiratory failure, unspecified whether with hypoxia or hypercapnia Status: Acute Assessment and Plan: Acute hypoxic respiratory failure, failed Airvo, high-flow therapy with non-rebreather mask as he was pulling on it. -patient was on BiPAP, switch to Airvo again on 12/07 - currently on 90% FiO2, 60 L flow rate -continue bronchodilators and Pulmicort -chest x-ray and ABGs reviewed -continue Precedex infusion will, wean Precedex as tolerated (2) Pneumonia due to COVID-19 virus: Code(s): U07.1 - COVID-19; J12.82 - Pneumonia due to coronavirus disease 2019 Status: Acute Assessment and Plan: Patient tested positive for SARS-CoV-2 PCR on 12/03/2020 -continue droplet, airborne and contact isolation/precautions -patient has been started on dexamethasone which was initiated on 12/04 -patient not a candidate for remdesivir given his renal dysfunction (3) Delirium: Code(s): R41.0 - Disorientation, unspecified Status: Acute Assessment and Plan: Patient was delirious and agitated, pulling on his Airvo and non-rebreather. He was also putting on his BiPAP mask. -patient was started on Precedex infusion, is more compliant with Airvo (4) Chronic kidney disease, stage 4 (severe): Code(s): N18.4 - Chronic kidney disease, stage 4 (severe) Status: Acute Assessment and Plan: Stage 4 chronic kidney disease with acute insult likely related to COVID pneumonia, hypovolemia 2nd decreased p.o. intake fluids rhabdomyolysis as his CK levels are elevated. -renal ultrasound showed bilateral increased renal cortical echogenicity consistent with chronic medical renal disease. No hydronephrosis. -urine lytes not showing a prerenal picture -nephrology following the patient, -nephrology has ordered Bumex, patient has been responding well to diuresis (5) Rhabdomyolysis: Code(s): M62.82 - Rhabdomyolysis Status: Acute Assessment and Plan: Could sodium bicarb infusion per Nephrology -CK levels trending down (6) Acute hyperglycemia: Code(s): R73.9 - Hyperglycemia, unspecified Status: Deleted Assessment and Plan: Likely related to dexamethasone, will add sliding scale insulin and Accu-Chek -Lantus increased (7) Atrial fibrillation with RVR: Code(s): I48.91 - Unspecified atrial fibrillation Status: Acute Assessment and Plan: Patient had tachycardia on 12/05/2020 -cardiology was consulted, appreciate their evaluation and recommendation -started on metoprolol and Eliquis -patient unable to take p.o. at this time, -currently in AFib rate controlled. -patient dropped his hemoglobin heparin was discontinued yesterday on 12/07/2020 -will restart quiz once he passes a swallow evaluation -ordered IV metoprolol (8) DVT prophylaxis: Code(s): Z29.9 - Encounter for prophylactic measures, unspecified Status: Acute Assessment and Plan: Eliquis Additional Plan Stress ulcer prophylaxis, Protonix Code status: Full code Critical care time spent: 32 minutes This dictation may have been done utilizing a voice recognition system. Attempts have been made to correct errors. However, there may be uncorrected grammatical, spelling, and recognition errors present. Due to a high probability of clinically significant, life threatening deterioration, the patient required my highest level of preparedness to intervene emergently and I personally spent this critical care time directly and personally managing the patient. This critical care time included obtaining a history; examining the patient; pulse oximetry; ordering and review of studies; arranging urgent treatment with development of a management plan; evaluation of patient's response to treatment; frequent reassessment; and discussions with other providers. It was exclusive of [facility] billabl
[2020-12-08] MEDS: METOPROLOL TARTRATE INJ 5 MG/5 ML VIAL 2.5 MG IV PUSH (12:48)
--- NOTE | 2020-12-08 14:30 | PCSTNOTE ---
Bedside swallow evaluation attempted this date but pt on bi-pap and unable to participate for this evaluation at this time. Spoke with nsg and agreed to check in tomorrow.
[2020-12-08] MEDS: dexmedeTOMIDine 400 MCG/100 ML 400 MCG/100 ML BAG 13.44 MCG IV CONT (14:44)
[2020-12-08] MEDS: dexmedeTOMIDine 400 MCG/100 ML 400 MCG/100 ML BAG 32.25 MCG IV CONT ×3 (17:12→23:29)
[2020-12-08] MEDS: DEXTROSE 50% 25 GM/50 ML SYRINGE IV PUSH (17:26)
[2020-12-08 18:16] LABS: Glucose Point of Care 145 mg/dl (65-105)
[2020-12-08 18:16] LABS: Glucose Point of Care 49 mg/dl (65-105)
[2020-12-08 18:16] LABS: Glucose Point of Care 75 mg/dl (65-105)
[2020-12-08 23:20] LABS: Glucose Point of Care 87 mg/dl (65-105)
[2020-12-09] VITALS (39 sets, daily range): BP systolic 75–163; BP diastolic 33–113; PULSE 86–128; RESP 17–32; TEMP 36.4–38.5; O2SAT 83–97
[2020-12-09] MEDS: dexmedeTOMIDine 400 MCG/100 ML 400 MCG/100 ML BAG 32.25 MCG IV CONT ×3 (04:50→13:07)
[2020-12-09 06:29] LABS: Glucose Point of Care 71 mg/dl (65-105)
[2020-12-09] MEDS: METOPROLOL TARTRATE INJ 5 MG/5 ML VIAL 2.5 MG IV PUSH ×2 (06:32→11:05)
[2020-12-09 06:57] LABS: Hematocrit 33.5 % (42.0-52.0); Hemoglobin 10.8 g/dL (14.0-18.0); Mean Corpuscular HGB Conc 32.2 g/dl (32-36); Mean Corpuscular Hemoglobin 30.3 pg (26-34); Mean Corpuscular Volume 94.1 fl (80-100); Mean Platelet Volume 11.3 fl (7.4-10.4); Platelet Count Result 124 k/mm3 (150-375); Red Blood Count 3.56 M/mm3 (4.6-6.20); Red Cell Distribution Width 13.9 % (11.5-14.5); White Blood Count 17.1 K/mm3 (4.5-10.0)
[2020-12-09 07:19] LABS: Alanine Aminotransferase 46 U/L (4-50); Albumin Level 2.8 g/dL (3.5-5.1); Alkaline Phosphatase 58 U/L (38-126); Anion Gap 9 mmol/L (8-16); Aspartate Amino Transferase 71 U/L (17-59); Bilirubin,Total 0.7 mg/dL (0.2-1.3); Blood Urea Nitrogen 119 mg/dL (9-20); Calcium 6.5 mg/dL (8.4-10.2); Carbon Dioxide 23 mmol/L (22-30); Chloride 113 mmol/L (98-107); Creatine Kinase 385 U/L (55-170); Creatine Kinase 387 U/L (55-170); Estimated CRCL calculation 17 ml/min; Estimated Glomerular Filt Rate 14; Glucose 66 mg/dL (65-110); Phosphorus 4.7 mg/dL (2.5-4.5); Potassium 3.5 mmol/L (3.4-5.0); Sodium 145 mmol/L (137-145)
[2020-12-09 07:51] LABS: CRP 35.6 mg/dL (<1.0)
[2020-12-09] MEDS: IPRATROPIUM BR 0.02% INH SOLN 0.5 MG/2.5 ML VIAL INHALATION ×2 (08:18→14:31)
[2020-12-09] MEDS: BUMETANIDE INJ 1 MG/4 ML VIAL IV PUSH (08:58)
[2020-12-09] MEDS: APIXABAN 5 MG TABLET PO (08:58)
[2020-12-09] MEDS: FLUTICASONE PROPIONATE 0.05% NA SPR 16 GM BTL (*BKC) 2 SPRAY NASAL (08:58)
[2020-12-09] MEDS: PANTOPRAZOLE SODIUM IV 40 MG VIAL IV PUSH (08:59)
--- NOTE | 2020-12-09 09:11 | PM.PNNEP ---
Progress Note: A&P Assessment and Plan (1) Acute renal failure: Code(s): N17.9 - Acute kidney failure, unspecified Status: Acute Assessment and Plan: Patient has acute kidney injury. Several issues are occurring. The patient has COVID. Sometimes this can directly affect the kidneys or the inflammation associated therewith can cause some kidney damage. His creatinine has dropped to 4.2. He is still making urine. However his oxygenation is worse. He is getting Bumex 2mg a day. Will try a 1 time dose of metolazone. (2) Chronic kidney disease, stage 4 (severe): Code(s): N18.4 - Chronic kidney disease, stage 4 (severe) Status: Acute Assessment and Plan: He has chronic kidney disease stage 4 from diabetes and hypertension. His baseline GFR is around 23. This was the value in early October in the office. (3) Pneumonia due to COVID-19 virus: Code(s): U07.1 - COVID-19; J12.82 - Pneumonia due to coronavirus disease 2018 Status: Acute Assessment and Plan: The patient has the COVID. He is getting dexamethasone, supportive respiratory care, and is on isolation. Oxygenation is worse. (4) GERD (gastroesophageal reflux disease): Qualifiers: Esophagitis presence: esophagitis presence not specified Qualified Code(s): K21.9 - Gastro-esophageal reflux disease without esophagitis Code(s): K21.9 - Gastro-esophageal reflux disease without esophagitis Status: Acute Assessment and Plan: The patient is on Pepcid (5) DM type 2 (diabetes mellitus, type 2): Qualifiers: Diabetes mellitus meterman insulin use: with meterman use Diabetes mellitus complication status: with ophthalmic complications Diabetes mellitus complication detail: with diabetic retinopathy Diabetic retinopathy severity: with unspecified retinopathy severity Diabetes mellitus macular edema: macular edema presence unspecified Laterality: unspecified laterality Qualified Code(s): E11.319 - Type 2 diabetes mellitus with unspecified diabetic retinopathy without macular edema; Z79.4 - penitentiary (current) use of insulin Code(s): E11.9 - Type 2 diabetes mellitus without complications Status: Acute Assessment and Plan: He is on Accu-Cheks and sliding-scale insulin (6) Hyperlipidemia: Qualifiers: Hyperlipidemia type: unspecified Qualified Code(s): E78.5 - Hyperlipidemia, unspecified Code(s): E78.5 - Hyperlipidemia, unspecified Status: Acute Assessment and Plan: We are holding the statin for now Subjective Date/time seen: 12/09/20 09:11 Interval history: Patient is on Precedex. He is now on BiPAP for oxygenation. He is still making urine. Exam Narrative: WDWN in NAD on the BiPAP machine skin no rash Or subcu nodules head ncat lungs coarse bilaterally cor reg no rub or gallop abd BS+ nontender and soft ext no edema. Objective Data Vital Signs Vital Signs: Vital Signs - 24 hr 12/08/20 10:00 12/08/20 12:00 12/08/20 13:50 Temperature 36.8 C 36.9 C Pulse Rate 100 105 H 106 H Respiratory Rate 22 H 26 H 24 H Blood Pressure 123/96 H 97/78 L Pulse Oximetry 93 90 86 L 12/08/20 14:00 12/08/20 14:05 12/08/20 14:44 Temperature 37.2 C Pulse Rate 105 H 105 H 105 H Respiratory Rate 18 17 17 Blood Pressure 125/54 L Pulse Oximetry 94 94 12/08/20 15:00 12/08/20 16:00 12/08/20 17:12 Temperature 37.5 C Pulse Rate 105 H 93 93 Respiratory Rate 17 19 19 Blood Pressure 101/61 Pulse Oximetry 93 12/08/20 18:00 12/08/20 20:00 12/08/20 20:58 Temperature 37.2 C 37.2 C Pulse Rate 88 88 79 Respiratory Rate 18 19 17 Blood Pressure 121/69 124/65 Pulse Oximetry 94 94 12/08/20 21:10 12/08/20 21:47 12/08/20 23:26 Temperature Pulse Rate 80 79 86 Respiratory Rate 17 18 Blood Pressure 124/65 Pulse Oximetry 94 12/08/20 23:29 12/08/20 23:43 12/08/20 23:45 Temperature Pul
--- NOTE | 2020-12-09 09:39 | WPDINTPN ---
Progress Note: A&P Assessment and Plan (1) Acute respiratory failure: Code(s): J96.00 - Acute respiratory failure, unspecified whether with hypoxia or hypercapnia Status: Acute Assessment and Plan: Acute hypoxic respiratory failure, failed Airvo, high-flow therapy with non-rebreather mask as he was pulling on it. -patient back and forth from Airvo to BiPAP -currently on BiPAP 10/6, 100% FiO2 with adequate O2 sats. -chest x-ray shows increased in but diffuse severe bilateral infiltrates, -patient is being diuresed with Bumex per kitchenwhere maker -continue bronchodilators and Pulmicort -chest x-ray and ABGs reviewed -continue Precedex infusion will, wean Precedex as tolerated (2) Pneumonia due to COVID-19 virus: Code(s): U07.1 - COVID-19; J12.82 - Pneumonia due to coronavirus disease 2019 Status: Acute Assessment and Plan: Patient tested positive for SARS-CoV-2 PCR on 12/03/2020 -continue droplet, airborne and contact isolation/precautions -patient has been started on dexamethasone which was initiated on 12/04 -patient not a candidate for remdesivir given his renal dysfunction (3) Delirium: Code(s): R41.0 - Disorientation, unspecified Status: Acute Assessment and Plan: Patient was delirious and agitated, pulling on his Airvo and non-rebreather. He was also putting on his BiPAP mask. -patient was started on Precedex infusion, is more compliant with Airvo (4) Chronic kidney disease, stage 4 (severe): Code(s): N18.4 - Chronic kidney disease, stage 4 (severe) Status: Acute Assessment and Plan: Stage 4 chronic kidney disease with acute insult likely related to COVID pneumonia, hypovolemia 2nd decreased p.o. intake fluids rhabdomyolysis as his CK levels are elevated. -renal ultrasound showed bilateral increased renal cortical echogenicity consistent with chronic medical renal disease. No hydronephrosis. -urine lytes not showing a prerenal picture -nephrology following the patient, -nephrology has ordered Bumex, patient has been responding well to diuresis - creatinine improving (5) Rhabdomyolysis: Code(s): M62.82 - Rhabdomyolysis Status: Acute Assessment and Plan: Could sodium bicarb infusion per Nephrology -CK levels trending down (6) Acute hyperglycemia: Code(s): R73.9 - Hyperglycemia, unspecified Status: Deleted Assessment and Plan: Likely related to dexamethasone, will add sliding scale insulin and Accu-Chek -Lantus increased (7) Atrial fibrillation with RVR: Code(s): I48.91 - Unspecified atrial fibrillation Status: Acute Assessment and Plan: Patient had tachycardia on 12/05/2020 -cardiology was consulted, appreciate their evaluation and recommendation -started on metoprolol and Eliquis -patient unable to take p.o. at this time, -currently in AFib rate controlled. -patient dropped his hemoglobin heparin was discontinued yesterday on 12/07/2020 -will restart quiz once he passes a swallow evaluation -ordered IV metoprolol (8) DVT prophylaxis: Code(s): Z29.9 - Encounter for prophylactic measures, unspecified Status: Acute Assessment and Plan: Eliquis Additional Plan Stress ulcer prophylaxis, Protonix Code status: Full code Critical care time spent: 32 minutes This dictation may have been done utilizing a voice recognition system. Attempts have been made to correct errors. However, there may be uncorrected grammatical, spelling, and recognition errors present. Due to a high probability of clinically significant, life threatening deterioration, the patient required my highest level of preparedness to intervene emergently and I personally spent this critical care time directly and personally managing the patient. This critical care time included obtaining a history; examining the patient; pulse oximetry; ordering and review of studies; arranging urgent treatment with development of a
--- NOTE | 2020-12-09 10:18 | PCSTNOTE ---
Attempted x2 to see the patient for a bedside swallow evaluation. The patient remains on bipap and is unable to participate on this date. Anticipate checking in tomorrow to attempt the evaluation.
[2020-12-09] MEDS: metOLazone 5 MG TABLET PO (11:04)
[2020-12-09 11:25] LABS: Glucose Point of Care 88 mg/dl (65-105)
--- NOTE | 2020-12-09 14:33 | PM.EVENT ---
Event Note Event Note Event Note: Patient was on Precedex infusion at 1.5 mcg, he was pulling on his BiPAP in desaturating this 60s and 70s. Discussed with son Salomon and his Kitty regarding intubation as he was dropping his O2 sats. The requested that we intubated the patient at this time. If he does not improve, we should let her know and they will discuss with us further. -patient was successfully intubated on 12/09/2020, intubation was uneventful.
--- NOTE | 2020-12-09 14:35 | WPDPROCEDUR ---
Procedures Intubation Intubation Date: 12/09/20 Intubation Time: 13:55 A pre-procedural Time-Out was completed immediately before starting the procedure and confirmed: Patient Identification, Site, Procedure, Patient Position and the Availability of Requisite Equipment: Yes Sedative: etomidate Paralytic: rocuronium Laryngoscope: fiber optic video scope Assist device used: fiber optic device ET tube size: 8 Tube secured depth (cm): 25 Tube secured location: lips Tube placement confirmation: visualized tube passing through cords, equal breath sounds bilaterally, no breath sounds over epigastrium and confirmation by capnometry Patient tolerated procedure: well Intubation complications: none
[2020-12-09] MEDS: RAPID SEQUENCE INTUBATION KIT 1 EACH (14:36)
[2020-12-09] MEDS: FENTANYL 2,500MCG/NS250ML(*CRX 2,500 MCG/250 ML BAG 10 MCG IV CONT (14:36)
[2020-12-09] MEDS: MIDAZOLAM 100MG/NS 100ML(*CRX) 100 MG/100 ML BAG IV CONT (14:37)
--- NOTE | 2020-12-09 15:15 | PM.IMPN ---
Progress Note: A&P Assessment and Plan (1) Pneumonia due to COVID-19 virus: Code(s): U07.1 - COVID-19; J12.82 - Pneumonia due to coronavirus disease 2018 Status: Acute Assessment and Plan: chest x-ray showed stable but significant COVID -He was becoming more and more hypoxic and pulling off his bipap so he was intubated this afternoon -He is also running fevers. Will order blood cultures. -Would recommend abx, will talk to Dr. Abebe -continue Decadron, pt unable to receive Remdesivir due to kidney function -consider starting heparin ggt or lovenox tonight since hgb has remained stable (received eliquis this morning) -He was vaccinated with Moderna back in May and June. Antibodies positive, no indication for plasma (2) Acute respiratory failure: Code(s): J96.00 - Acute respiratory failure, unspecified whether with hypoxia or hypercapnia Status: Acute Assessment and Plan: Secondary to above (3) DM type 2 (diabetes mellitus, type 2): Qualifiers: Diabetes mellitus termite control technician insulin use: with residential use Diabetes mellitus complication status: with ophthalmic complications Diabetes mellitus complication detail: with diabetic retinopathy Diabetic retinopathy severity: with unspecified retinopathy severity Diabetes mellitus macular edema: macular edema presence unspecified Laterality: unspecified laterality Qualified Code(s): E11.319 - Type 2 diabetes mellitus with unspecified diabetic retinopathy without macular edema; Z79.4 - terminal operations manager (current) use of insulin Code(s): E11.9 - Type 2 diabetes mellitus without complications Status: Acute Assessment and Plan: Last glucose 88 -AccuCheck q6 -Lantus adjusted by Dr. Abbee -a1c 6.5, previous acute hyperglycemia likely due to infection and steroids -decrease SSI (4) Delirium: Code(s): R41.0 - Disorientation, unspecified Status: Acute Assessment and Plan: No sedated (5) Chronic kidney disease, stage 4 (severe): Code(s): N18.4 - Chronic kidney disease, stage 4 (severe) Status: Acute Assessment and Plan: Cr improved today 4.2 -Pt baseline 2.3-[address] Capellan -He is making urine, he had 2450 out yesterday and was in a negative fluid balance -ck improved -nephrology on board -renal ultrasound showed bilateral increased renal cortical echogenicity consistent with chronic medical renal disease. No hydronephrosis. (6) Rhabdomyolysis: Code(s): M62.82 - Rhabdomyolysis Status: Acute Assessment and Plan: Ck improved (7) Atrial fibrillation with RVR: Code(s): I48.91 - Unspecified atrial fibrillation Status: Acute Assessment and Plan: Appears to be in sinus tachycardia now -could be due to fevers/PNA or agitation -continue scheduled metoprolol now IV -cardiology was consulted, appreciate their evaluation and recommendation (8) DVT prophylaxis: Code(s): Z29.9 - Encounter for prophylactic measures, unspecified Status: Acute Assessment and Plan: consider heparin or lovenox for DVT prophylaxis tonight since pt now unable to take eliquis Time Spent With Patient Time with patient: 25 - 35 minutes Subjective Date/time seen: 12/09/20 15:15 Interval history: Pt is a 75 y/o male here for COVID PNA. Pt is sedated on a ventilator and unable to answer any questions. Review of Systems Review of Systems: All systems reviewed & are unremarkable except as noted in HPI and below Exam Narrative: General: Patient resting in bed on the ventilator. Warm to touch HEENT: normocephalic. Neck: supple Neuro: sedated, opens his eyes and tracks. CV: sinus tachycardia noted on telemetry 120. Resp: Mild crackles at the bases, overall clear for from the anterior chest. Telemetry showing hypoxia down to 80% Abd: Soft, non distended. Protuberant. No pain to p
--- NOTE | 2020-12-09 15:47 | P.PCNBED_ITS ---
Procedures Central Line Placement Right IJ: Central Line Date: 12/09/20 Central Line Time: 15:50 Discussed w/ the patient/family/POA,the placement of a central venous catheter, including its clinical necessity/indication & associated potential risks, benifits and alternatives.: Yes The patient/family/POA understand(s) and acknowledge(s) the need to proceed with central venous catheter insertion as an important element of the patient's clinical management.: Yes Time Out Performed: Yes Patient Position: supine Patient placed on monitor/pulse ox: Yes Provider Prep: mask, sterile gown, sterile gloves, Max. sterile barrier precautions, cap and hand hygiene with conventional soap/water or alcohol based hand rub Central line prep: 2% Chlorhexidine scrub Local anesthesia used: lidocaine 1% Amount of anesthesia used (ml): 3 Sterile US Technique with sterile gel/sterile probe covers: Yes Central line lumen inserted: triple Nepali: 7 Length (cm): 16 Depth of Insertion (cm): 16 Post Procedure: sutured in place, good blood return, all ports aspirated, flushed, capped, transparent dressing, hemostatic product, antimicrobial product, securement product and aseptic technique maintained throughout procedure Post procedure x-ray: tip of catheter in good position and no pneumothorax seen Patient tolerated procedure: well Complications: none
--- NOTE | 2020-12-09 16:00 | PM.EVENT ---
Event Note Event Note Event Note: Patient is febrile with T-max of 101.3?, leukocytosis jumped from 12.3 to 17.1 -will obtain urine, blood, sputum, -start cefepime and vancomycin, will deescalate of cultures are negative
[2020-12-09] MEDS: EPOPROSTENOL SODIUM 0.5 MG VIAL 1 MG INHALATION (16:21)
[2020-12-09 18:17] LABS: Glucose Point of Care 119 mg/dl (65-105)
[2020-12-09] MEDS: CISATRACURIUM BESYLATE 200 MG in DEXTROSE 5% 80 ML 9.54 ML IV CONT (18:27)
[2020-12-09] MEDS: NOREPINEPHRINE 8 MG/D5W 250 ML 8 MG/250 ML BAG 9.38 MG IV CONT (20:10)
[2020-12-09] MEDS: INSULIN GLARGINE (*BKC) 100 UNITS/ML 20 UNITS SUB-Q (20:13)
[2020-12-10] VITALS (91 sets, daily range): BP systolic 67–157; BP diastolic 40–83; PULSE 73–137; RESP 28–30; TEMP 35.9–38.5; O2SAT 60–100; BMI 32.5
[2020-12-10 01:00] LABS: Glucose Point of Care 211 mg/dl (65-105)
[2020-12-10 01:00] LABS: Glucose Point of Care 215 mg/dl (65-105)
[2020-12-10] MEDS: VASOPRESSIN INJ 100 UNITS in DEXTROSE 5% 95 ML IV CONT (01:52)
[2020-12-10] MEDS: EPOPROSTENOL SODIUM 0.5 MG VIAL 1 MG INHALATION ×4 (01:57→19:51)
[2020-12-10] MEDS: AMIODARONE 150 MG/D5W 100 ML 150 MG/100 ML BAG 600 MG IV CONT (02:15)
[2020-12-10] MEDS: AMIODARONE 360 MG/D5W 200 ML 360 MG/200 ML BAG 33.33 MG IV CONT (02:22)
[2020-12-10] MEDS: CISATRACURIUM BESYLATE 200 MG in DEXTROSE 5% 80 ML 7.95 ML IV CONT ×2 (02:27→13:45)
[2020-12-10] MEDS: NOREPINEPHRINE 8 MG/D5W 250 ML 8 MG/250 ML BAG 56.25 MG IV CONT ×4 (04:05→18:45)
[2020-12-10 04:38] LABS: Basophils Absolute Auto 0.2 K/mm3 (0.0-0.1); Basophils Percent Auto 0.6 % (0.2-1.2); Hematocrit 42.8 % (42.0-52.0); Hemoglobin 13.3 g/dL (14.0-18.0); Immature Granulocyte Absolute 1.27 K/mm3 (0.00-0.031); Immature Granulocyte Percent A 5.4 % (0-0.5); Lymphocytes Absolute Auto 0.54 K/mm3 (0.9-3.2); Lymphocytes Percent Auto 2.3 % (18.3-44.2); Mean Corpuscular HGB Conc 31.1 g/dl (32-36); Mean Corpuscular Volume 99.8 fl (80-100); Mean Platelet Volume 11.8 fl (7.4-10.4); Monocytes Percent Auto 4.3 % (2.6-8.5); Neutrophils Absolute Auto 20.5 K/mm3 (1.3-6.7); Neutrophils Percent Auto 87.4 % (45.5-73.1); Platelet Count Result 205 k/mm3 (150-375); Red Blood Count 4.29 M/mm3 (4.6-6.20); White Blood Count 23.5 K/mm3 (4.5-10.0)
[2020-12-10 04:51] LABS: Lactic Acid Reflex 2.9 mmol/L (0.7-2.1)
[2020-12-10 04:58] LABS: Alveolar/Arterial O2 Gradient 590.8 mmHg; Base Excess ABG -16.6 mEq/l (+/-2.0); Fractional Inspired Oxygen 100 %; HCO3 ABG 14.5 mEq/l (22.0-26.0); Methemoglobin ABG 0.3 %THb (0-1.5); Oxygen Content ABG 17.6 %vol (16.0-22.0); PCO2 ABG 55.7 mmHg (35.0-45.0); PO2 ABG 66.5 mmHg (80.0-100.0); PO2 FiO2 Ratio Arterial Blood 0.67 %; Reduced Hemoglobin 13.7 %THb (0-5.0); Total Hemoglobin 14.7 g/dL (12.0-18.0)
[2020-12-10 04:59] LABS: pH ABG 7.033 (7.350-7.450)
[2020-12-10 05:00] LABS: Device VENTILATOR; Modified Allen's Test Unable to perform; Oxygen Saturation ABG 82.6 % (95.0-100.0); Site Drawn LEFT RADIAL
[2020-12-10 05:01] LABS: Arterial Blood Gas PEEP 14 cmH2O; Arterial Blood Gas Vent Mode CMV; Arterial Blood Gas Ventilator rate 28 /MIN
[2020-12-10 05:02] LABS: Alanine Aminotransferase 45 U/L (4-50); Albumin Level 3.3 g/dL (3.5-5.1); Alkaline Phosphatase 83 U/L (38-126); Anion Gap 25 mmol/L (8-16); Aspartate Amino Transferase 52 U/L (17-59); Bilirubin,Total 0.6 mg/dL (0.2-1.3); Calcium 7.1 mg/dL (8.4-10.2); Carbon Dioxide 16 mmol/L (22-30); Chloride 100 mmol/L (98-107); Estimated CRCL calculation 12 ml/min; Estimated Glomerular Filt Rate 9; Glucose 408 mg/dL (65-110); Magnesium 2.4 mg/dL (1.6-2.3); Potassium 5.4 mmol/L (3.4-5.0); Sodium 141 mmol/L (137-145)
[2020-12-10 05:02] LABS: Arterial Blood Gas Tidal Volume 470 ml
[2020-12-10 05:09] LABS: Burr Cells 1+ (NORMAL); Large Platelets Present; Platelet Estimate Adequate (Adequate); Poikilocytosis 1+ (NORMAL)
[2020-12-10] MEDS: SODIUM BICARBONATE 8.4% 50 MEQ/50 ML SYRINGE 100 MEQ IV PUSH ×2 (05:15→09:50)
[2020-12-10] MEDS: SODIUM CHLORIDE 0.9% IV 1,000 ML 999 ML IV CONT (05:20)
[2020-12-10 05:31] LABS: CRP 41.5 mg/dL (<1.0)
[2020-12-10] MEDS: MINERAL OIL/WHITE PETROLATUM OINTMENT 1 APPLIC EACH EYE ×3 (05:40→21:02)
[2020-12-10] MEDS: INSULIN ASPART (*BKC) 100 UNITS/ML 8 UNITS SUB-Q (06:14)
[2020-12-10] MEDS: FENTANYL 2,500MCG/NS250ML(*CRX 2,500 MCG/250 ML BAG 15 MCG IV CONT ×2 (06:15→21:57)
[2020-12-10] MEDS: SODIUM BICARBONATE 8.4% 150 MEQ in DEXTROSE 5% 1,000 ML 950 ML 75 MEQ IV CONT ×2 (06:19→21:00)
[2020-12-10 06:44] LABS: Ferritin > 2000.00 ng/mL (11.1-264)
[2020-12-10 06:54] LABS: Phosphorus 13.1 mg/dL (2.5-4.5)
[2020-12-10] MEDS: MIDAZOLAM 100MG/NS 100ML(*CRX) 100 MG/100 ML BAG IV CONT (07:15)
[2020-12-10] MEDS: AMIODARONE 360 MG/D5W 200 ML 360 MG/200 ML BAG 16.67 MG IV CONT ×2 (07:16→20:26)
[2020-12-10 07:35] LABS: Reflex Lactic Acid Yes or No Add Lactic
[2020-12-10 07:48] LABS: Glucose Point of Care 259 mg/dl (65-105)
[2020-12-10 07:48] LABS: Glucose Point of Care 323 mg/dl (65-105)
--- NOTE | 2020-12-10 08:24 | PCSTNOTE ---
Bedside Swallow Eval cancelled this date due to patient intubation. A new order for Bedside Swallow Evaluation may be ordered and completed when patient is able to tolerate.
[2020-12-10 08:36] LABS: Lactic Acid 2.9 mmol/L (0.7-2.1)
--- NOTE | 2020-12-10 08:50 | PCOTNOTE ---
Addendum entered by Yasmine Baron, ORQUIDEA 12/10/20 08:51: due to severity of pt. condition, pt. is not appropriate for therapy at this time. Original Note: Attempted to see to evaluate. Spoke with charge nurse, who requested that pt. orders for therapy be canceled.
[2020-12-10 09:45] LABS: Blood Urea Nitrogen 137 mg/dL (9-20)
[2020-12-10] MEDS: CALCIUM GLUC 2,000 MG/NS 100ML 2,000 MG/100 ML BAG 100 MG IVPB (10:14)
[2020-12-10] MEDS: INSULIN HUMAN REGULAR (*BKC) 100 UNITS/ML 10 UNITS IV PUSH ×2 (10:22→12:44)
[2020-12-10] MEDS: INSULIN GLARGINE (*BKC) 100 UNITS/ML 20 UNITS SUB-Q (10:22)
[2020-12-10] MEDS: PANTOPRAZOLE SODIUM IV 40 MG VIAL IV PUSH (10:27)
[2020-12-10] MEDS: FLUTICASONE PROPIONATE 0.05% NA SPR 16 GM BTL (*BKC) 2 SPRAY NASAL (10:29)
[2020-12-10 11:06] LABS: Glucose Point of Care 381 mg/dl (65-105)
--- NOTE | 2020-12-10 11:21 | WPDINTPN ---
Progress Note: A&P Assessment and Plan (1) Acute respiratory failure: Code(s): J96.00 - Acute respiratory failure, unspecified whether with hypoxia or hypercapnia Status: Acute Assessment and Plan: Acute hypoxic respiratory failure, failed Airvo, high-flow therapy with non-rebreather mask as he was pulling on it. -patient back and forth from Airvo to BiPAP. He was started on Precedex infusion for delirium -eventually he failed BiPAP and was intubated on 12/09 -chest x-ray reviewed and shows diffuse severe bilateral infiltrates, -patient was being diuresed with Bumex per hardware engineer but will hold due to shock -continue bronchodilators and Pulmicort -chest x-ray and ABGs reviewed -currently sedated with Versed and fentanyl -wean FiO2 and I have weaned FiO2 down to 80% (2) Septic shock: Code(s): A41.9 - Sepsis, unspecified organism; R65.21 - Severe sepsis with septic shock Status: Acute Assessment and Plan: Patient became hypotensive post intubation Empiric vanc and cefepime started Blood and sputum culture sent Will replace Chou Levophed Ha-Synephrine vasopressin Recent echocardiogram reviewed (3) Pneumonia due to COVID-19 virus: Code(s): U07.1 - COVID-19; J12.82 - Pneumonia due to coronavirus disease 2019 Status: Acute Assessment and Plan: Patient tested positive for SARS-CoV-2 PCR on 12/03/2020 -continue droplet, airborne and contact isolation/precautions -patient has been started on dexamethasone which was initiated on 12/04 -patient not a candidate for remdesivir given his renal dysfunction -also not a candidate for anti IL 6 medication due to sepsis (4) JACQUIE (acute kidney injury): Code(s): N17.9 - Acute kidney failure, unspecified Status: Acute Assessment and Plan: Patient has developed acute kidney injury over his chronic kidney disease stage 4 He also has metabolic acidosis and mild rhabdomyolysis Urine output is poor Mild hyperkalemia Nephrology is following and patient is on IV fluids with bicarb. Conservative IV fluids due to COVID-19 pneumonia and severe respiratory failure IV bicarb push and will add bicarb per tube Kayexalate per tube Hold Bumex due to shock He will likely need hemodialysis but will likely not be able to tolerate intermittent dialysis due to significant shock and will likely need CRRT (5) Chronic kidney disease, stage 4 (severe): Code(s): N18.4 - Chronic kidney disease, stage 4 (severe) Status: Acute Assessment and Plan: Stage 4 chronic kidney disease with acute insult likely related to COVID pneumonia, hypovolemia 2nd decreased p.o. intake fluids rhabdomyolysis as his CK levels are elevated. -renal ultrasound showed bilateral increased renal cortical echogenicity consistent with chronic medical renal disease. No hydronephrosis. (6) Delirium: Code(s): R41.0 - Disorientation, unspecified Status: Acute Assessment and Plan: Now sedated (7) Rhabdomyolysis: Code(s): M62.82 - Rhabdomyolysis Status: Acute Assessment and Plan: Mild rhabdo with CK and 300s-likely not the main issue -patient is on sodium bicarb infusion per Nephrology -conservative IV fluids due to COVID-19 pneumonia and severe hypoxia (8) Atrial fibrillation with RVR: Code(s): I48.91 - Unspecified atrial fibrillation Status: Acute Assessment and Plan: Patient had tachycardia on 12/05/2020 -cardiology was consulted, appreciate their evaluation and recommendation -started on metoprolol and Eliquis --amio bolus and infusion (9) DVT prophylaxis: Code(s): Z29.9 - Encounter for prophylactic measures, unspecified Status: Acute Assessment and Plan: Currently on Eliquis Additional Plan DVT prophylaxis -on Eliquis Stress ulcer prophylaxis -IV PPI Nutrition -start Tube Feeds Nepro Code Status -DNR I spoke to patient's son Salomon Byrne who was with patient's at home. I
[2020-12-10 12:54] LABS: Glucose Point of Care 431 mg/dl (65-105)
--- NOTE | 2020-12-10 12:55 | PM.PNCARD ---
Progress Note: A&P Assessment and Plan (1) Tachycardia: Code(s): R00.0 - Tachycardia, unspecified Status: Acute Assessment and Plan: New onset atrial fibrillation secondary to acute illness with COVID-19 pneumonia. Rate had been controlled with low dose metoprolol. However, over the past several days, patient had worsening respiratory distress requiring intubation and he became hypotensive, so metoprolol was discontinued. - Systemically anticoagulated with eliquis - Remains in Afib - Rate remains reasonably controlled in the 90's, low 100's Subjective Date/time seen: 12/10/20 12:55 Date of service 12/10/2020: He is ventilated. Requiring some pressor support. HR reasonably controlled despite metoprolol being discontinued due to hypotension s/s septic shock Review of Systems Review of Systems: ROS unobtainable: Yes unobtainable due to mental status Exam Narrative: Ill-appearing older male resting in bed. Intubated. Const: General: comfortable and no acute distress HENMT: Head: normal to inspection Neck: Neck: normal visual inspection Chest: Chest palpation & inspection: normal inspection of the chest Resp: Effort & Inspection: other (mechanically ventilated) Cardio: Rate: tachycardic Rhythm: abnormal rhythm irregularly irregular Urinary Catheter: Urinary Catheter: patent and draining Neuro: Cranial nerves: Yes Equal, round and reactive pupils present Extrem: General: normal to inspection Psych: Mental Status: mental status grossly abnormal Objective Data Vital Signs Vital Signs: Vital Signs - 24 hr 12/09/20 13:07 12/09/20 14:00 12/09/20 14:31 Temperature 37.7 C H Pulse Rate 92 118 H 124 H Respiratory Rate 24 H 32 H 20 Blood Pressure 163/53 H Pulse Oximetry 84 L 12/09/20 14:36 12/09/20 14:37 12/09/20 14:44 Temperature Pulse Rate 92 92 128 H Respiratory Rate 24 H 24 H 20 Blood Pressure Pulse Oximetry 94 12/09/20 15:10 12/09/20 16:00 12/09/20 16:21 Temperature 38.5 C H Pulse Rate 108 H 108 H Respiratory Rate 28 H 28 H Blood Pressure 86/54 L Pulse Oximetry 83 L 86 L 86 L 12/09/20 18:00 12/09/20 18:27 12/09/20 19:00 Temperature 38.1 C H Pulse Rate 115 H 112 H 112 H Respiratory Rate 21 H 28 H Blood Pressure 75/33 L Pulse Oximetry 97 12/09/20 20:00 12/09/20 20:10 12/09/20 20:50 Temperature 37.6 C H Pulse Rate 112 H 102 H 113 H Respiratory Rate 28 H Blood Pressure 87/49 L 87/49 L Pulse Oximetry 97 96 12/09/20 21:45 12/09/20 22:00 12/09/20 22:48 Temperature 37.3 C Pulse Rate 116 H 115 H 116 H Respiratory Rate 28 H Blood Pressure 79/45 L 91/48 L 84/46 L Pulse Oximetry 97 12/09/20 23:14 12/09/20 23:23 12/10/20 00:00 Temperature 37.0 C Pulse Rate 117 H 116 H 116 H Respiratory Rate 28 H 28 H Blood Pressure 85/46 L Pulse Oximetry 95 94 12/10/20 00:57 12/10/20 01:28 12/10/20 01:30 Temperature Pulse Rate 117 H Respiratory Rate Blood Pressure 78/43 L 67/45 L 82/44 L Pulse Oximetry 12/10/20 01:36 12/10/20 01:52 12/10/20 02:00 Temperature 36.9 C Pulse Rate 106 H Respiratory Rate 28 H Blood Pressure 93/51 L 91/49 L 91/49 L Pulse Oximetry 98 12/10/20 02:02 12/10/20 02:07 12/10/20 02:15 Temperature Pulse Rate 137 H 135 H Respiratory Rate Blood Pressure 97/44 L 83/45 L Pulse Oximetry 96 12/10/20 02:17 12/10/20 02:22 12/10/20 02:25 Temperature Pulse Rate 99 110 H Respiratory Rate Blood Pressure 83/45 L 87/44 L 86/49 L Pulse Oximetry 12/10/20 02:27 12/10/20 03:10 12/10/20 04:00 Temperature 36.8 C Pulse Rate 110 H 112 H 111 H Respiratory Rate 28 H Blood Pressure 86/49 L 77/41 L 94/55 L Pulse Oximetry 90 12/10/20 04:05 12/10/20 04:40 12/10/20 04:46 Temperature Pulse Rate 106 H 106 H 107 H Respiratory Rate 28 H Blood Pressure 94/55 L Pulse Oximetry 89 L 12/10/20 04:47 12/10/20 05:00 12/10/20 05
[2020-12-10] MEDS: CENTRAL LINE FLUSH 10 ML IV PUSH ×3 (14:17→21:02)
--- NOTE | 2020-12-10 15:35 | PM.PNNEP ---
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 (3) Pneumonia due to COVID-19 virus: Code(s): U07.1 - COVID-19; J12.82 - Pneumonia due to coronavirus disease 2019 Status: Acute Assessment and Plan: on dexamethasone and ventilator support remains on isolation continue supporrtive therapy (4) DM type 2 (diabetes mellitus, type 2): Qualifiers: Diabetes mellitus [facility] insulin use: with [facility] use Diabetes mellitus complication status: with ophthalmic complications Diabetes mellitus complication detail: with diabetic retinopathy Diabetic retinopathy severity: with unspecified retinopathy severity Diabetes mellitus macular edema: macular edema presence unspecified Laterality: unspecified laterality Qualified Code(s): E11.319 - Type 2 diabetes mellitus with unspecified diabetic retinopathy without macular edema; Z79.4 - correction (current) use of insulin Code(s): E11.9 - Type 2 diabetes mellitus without complications Status: Acute Assessment and Plan: follow Accu-Cheks on slliding-scale insulin Will continue to follow. Subjective Date/time seen: 12/10/20 15:35 Chart reviewed - assuming care from Dr. Capellan; remains on 3 pressors to maintain MAP and on full ventilator support; renal function continues to deteriorate as noted by AM labs. Exam Narrative: General: WD/WN male intubated/sedated Heart: normal S1 and S2; no rub Lungs: coarse breath sounds throughout Abdomen: soft, nontender, nondistended, positive bowel sounds Extremities: no cyanosis or clubbing; no edema Skin: warm and dry Objective Data Vital Signs Vital Signs: Vital Signs Temp Pulse Resp BP Pulse Ox 12/10/20 14:45 73 131/69 12/10/20 14:30 75 92 12/10/20 14:15 92 151/74 H 12/10/20 14:00 90 30 H 12/10/20 13:32 110 H 30 H 93 12/10/20 12:45 100 30 H 94 12/10/20 12:41 90 139/73 12/10/20 12:00 90 28 H 139/73 12/10/20 10:06 104 H 28 H 97 12/10/20 10:00 101 H 28 H 112/63 12/10/20 08:30 97 95/48 L 12/10/20 08:00 36.1 C L 102 H 28 H 103/52 L 99 12/10/20 07:16 109 H 113/53 L 12/10/20 07:15 107 H 28 H 12/10/20 07:14 107 H 109/58 L 12/10/20 07:04 105 H 28 H 96 12/10/20 06:15 105 H 28 H 12/10/20 06:00 36.4 C L 106 H 28 H 106/55 L 94 12/10/20 05:10 100 73/40 L 12/10/20 05:00 106 H 89/43 L 12/10/20 04:47 100 88 L 12/10/20 04:46 107 H 28 H 89 L 12/10/20 04:40 106 H 12/10/20 04:05 106 H 94/55 L 12/10/20 04:00 36.8 C 111 H 28 H 94/55 L 90 12/10/20 03:10 112 H 77/41 L 12/10/20 02:27 110 H 86/49 L 12/10/20 02:25 110 H 86/49 L 12/10/20 02:22 99 87/44 L 12/10/20 02:17 83/45 L 12/10/20 02:15 135 H 83/45 L 12/10/20 02:07 137 H 96 12/10/20 02:02 97/44 L 12/10/20 02:00 36.9 C 106 H 28 H 91/49 L 98 12/10/20 01:52 91/49 L 12/10/20 01:36 93/51 L 12/10/20 01:30 82/44 L 12/10/20 01:28 67/45 L 12/10/20 00:57 117 H 78/43 L 12/10/20 00:00 37.0 C 116 H 28 H 85/46 L 94 12/09/20 23:23 116 H 12/09/20 23:14 117 H 28 H 95 12/09/20 22:48 116
--- NOTE | 2020-12-10 16:02 | PM.IMPN ---
Progress Note: A&P Assessment and Plan (1) Pneumonia due to COVID-19 virus: Code(s): U07.1 - COVID-19; J12.82 - Pneumonia due to coronavirus disease 2018 Status: Acute Assessment and Plan: Chest x-ray showed stable but significant COVID -Currently sedated, on a ventilator, and proned -Last fever 12/09/20 -Continue cefepime (day 2), vanc (day 2) and decadron (day 7) -Pt unable to receive Remdesivir due to kidney function -consider anticoagulation depending on surgery plans (possibly may need a dialysis cath as soon as tomorrow) -He was vaccinated with Moderna back in May and June. Antibodies positive, no indication for plasma (2) Acute respiratory failure: Code(s): J96.00 - Acute respiratory failure, unspecified whether with hypoxia or hypercapnia Status: Acute Assessment and Plan: Secondary to above (3) DM type 2 (diabetes mellitus, type 2): Qualifiers: Diabetes mellitus ferry terminal agent insulin use: with retirement use Diabetes mellitus complication status: with ophthalmic complications Diabetes mellitus complication detail: with diabetic retinopathy Diabetic retinopathy severity: with unspecified retinopathy severity Diabetes mellitus macular edema: macular edema presence unspecified Laterality: unspecified laterality Qualified Code(s): E11.319 - Type 2 diabetes mellitus with unspecified diabetic retinopathy without macular edema; Z79.4 - alf (current) use of insulin Code(s): E11.9 - Type 2 diabetes mellitus without complications Status: Acute Assessment and Plan: Last glucose 431 -AccuCheck q4 for now. If he continues to be high, plan is to transition to insulin drip -Lantus adjusted by Dr. Ruelas (increased today) -a1c 6.5, previous acute hyperglycemia likely due to infection and steroids (4) Delirium: Code(s): R41.0 - Disorientation, unspecified Status: Acute Assessment and Plan: Now sedated (5) Chronic kidney disease, stage 4 (severe): Code(s): N18.4 - Chronic kidney disease, stage 4 (severe) Status: Acute Assessment and Plan: Cr improved today 6.3 -potassium 5.4 today -Pt baseline 2.3-2.[address] Capellan -His UOP has decreased significantly today (only 25mlls out so far) -nephrology on board -renal ultrasound showed bilateral increased renal cortical echogenicity consistent with chronic medical renal disease. No hydronephrosis. -considering dialysis (6) Rhabdomyolysis: Code(s): M62.82 - Rhabdomyolysis Status: Acute Assessment and Plan: Ck improved (7) Atrial fibrillation with RVR: Code(s): I48.91 - Unspecified atrial fibrillation Status: Acute Assessment and Plan: On amiodarone -could be due to fevers/PNA -cardiology was consulted, appreciate their evaluation and recommendation (8) DVT prophylaxis: Code(s): Z29.9 - Encounter for prophylactic measures, unspecified Status: Acute Assessment and Plan: consider heparin for DVT prophylaxis depending on dialysis recommendations. Subjective Date/time seen: 12/10/20 16:02 Interval history: Pt is a 75 y/o male here for COVID PNA. Pt is sedated on a ventilator and unable to answer any questions. RN states he is not making urine. Exam Narrative: General: Patient resting in bed on the ventilator. Warm to touch HEENT: normocephalic. Neck: supple Neuro:sedated and proned CV:RRR on exam. Resp: Mechanical ventilated, overall clear lung sounds. Abd: unable to assess Extremities: No swelling, erythema, or pain to palpation. pulses intact, no mottling. Abrasions noted Objective Data Vital Signs Vital Signs: Vital Signs - 24 hr 12/09/20 16:21 12/09/20 18:00 12/09/20 18:27 Temperature 100.6 F H Pulse Rate 108 H 115 H 112 H Respiratory Rate 28 H 21 H Blood Pressure 75/33 L Pulse Oximetry 86 L 97 12/09/20 19:00 0
[2020-12-10] MEDS: SODIUM POLYSTYRENE SULFONONATE 15 GM/60 ML BTL 30 GM PO (16:42)
[2020-12-10] MEDS: SODIUM BICARBONATE TAB 650 MG TABLET 1300 MG FEED TUBE (17:26)
[2020-12-10] MEDS: INSULIN HUMAN REGULAR (*BKC) 100 UNITS in SODIUM CHLORIDE 0.9% IV 99 ML 8.3 UNITS IV CONT (18:00)
[2020-12-10] MEDS: INSULIN GLARGINE (*BKC) 100 UNITS/ML 50 UNITS SUB-Q (21:08)
[2020-12-10 22:07] LABS: Glucose Point of Care 455 mg/dl (65-105)
[2020-12-10 22:07] LABS: Glucose Point of Care 447 mg/dl (65-105)
[2020-12-10 22:07] LABS: Glucose Point of Care 364 mg/dl (65-105)
[2020-12-10 22:07] LABS: Glucose Point of Care 470 mg/dl (65-105)
[2020-12-10 22:07] LABS: Glucose Point of Care 496 mg/dl (65-105)
[2020-12-10] MEDS: NOREPINEPHRINE 8 MG/D5W 250 ML 8 MG/250 ML BAG 48.75 MG IV CONT (23:22)
[2020-12-10] MEDS: INSULIN HUMAN REGULAR (*BKC) 100 UNITS in SODIUM CHLORIDE 0.9% IV 99 ML 19.3 UNITS IV CONT (23:28)
[2020-12-10 23:34] LABS: Glucose Point of Care 383 mg/dl (65-105)
[2020-12-11] VITALS (45 sets, daily range): BP systolic 67–150; BP diastolic 44–88; PULSE 75–114; RESP 30; TEMP 35.6–38.1; O2SAT 88–100
[2020-12-11] MEDS: CISATRACURIUM BESYLATE 200 MG in DEXTROSE 5% 80 ML 7.95 ML IV CONT (00:56)
[2020-12-11 01:08] LABS: Glucose Point of Care 392 mg/dl (65-105)
[2020-12-11] MEDS: MIDAZOLAM 100MG/NS 100ML(*CRX) 100 MG/100 ML BAG IV CONT (01:53)
[2020-12-11] MEDS: EPOPROSTENOL SODIUM 0.5 MG VIAL 1 MG INHALATION ×4 (02:10→21:04)
[2020-12-11 03:24] LABS: Hematocrit 33.7 % (42.0-52.0); Hemoglobin 11.5 g/dL (14.0-18.0); Mean Corpuscular HGB Conc 34.1 g/dl (32-36); Mean Corpuscular Hemoglobin 30.7 pg (26-34); Mean Corpuscular Volume 90.1 fl (80-100); Mean Platelet Volume 12.2 fl (7.4-10.4); Platelet Count Result 157 k/mm3 (150-375); Red Blood Count 3.74 M/mm3 (4.6-6.20); Red Cell Distribution Width 14.5 % (11.5-14.5); White Blood Count 22.4 K/mm3 (4.5-10.0)
[2020-12-11 03:45] LABS: Alanine Aminotransferase 72 U/L (4-50); Albumin Level 2.7 g/dL (3.5-5.1); Alkaline Phosphatase 68 U/L (38-126); Anion Gap 14 mmol/L (8-16); Aspartate Amino Transferase 94 U/L (17-59); Bilirubin,Total 0.4 mg/dL (0.2-1.3); Calcium 6.3 mg/dL (8.4-10.2); Carbon Dioxide 30 mmol/L (22-30); Chloride 96 mmol/L (98-107); Estimated CRCL calculation 12 ml/min; Estimated Glomerular Filt Rate 9; Glucose 265 mg/dL (65-110); Magnesium 2.1 mg/dL (1.6-2.3); Phosphorus 8.5 mg/dL (2.5-4.5); Potassium 3.6 mmol/L (3.4-5.0); Sodium 140 mmol/L (137-145)
[2020-12-11] MEDS: INSULIN HUMAN REGULAR (*BKC) 100 UNITS in SODIUM CHLORIDE 0.9% IV 99 ML 19.3 UNITS IV CONT (04:01)
[2020-12-11] MEDS: NOREPINEPHRINE 8 MG/D5W 250 ML 8 MG/250 ML BAG 41.25 MG IV CONT (04:02)
[2020-12-11 04:04] LABS: Blood Urea Nitrogen 140 mg/dL (9-20)
[2020-12-11 04:25] LABS: Glucose Point of Care 275 mg/dl (65-105)
[2020-12-11 04:25] LABS: Alveolar/Arterial O2 Gradient 372.2 mmHg; Base Excess ABG 2.3 mEq/l (+/-2.0); Carboxyhemoglobin 0.7 % THb (0-2.0); Fractional Inspired Oxygen 75 %; HCO3 ABG 29.4 mEq/l (22.0-26.0); Methemoglobin ABG 0.3 %THb (0-1.5); Oxygen Content ABG 17.8 %vol (16.0-22.0); Oxygen Saturation ABG 97.3 % (95.0-100.0); Oxyhemoglobin 96.1 % THb (90.0-100.0); PCO2 ABG 56.3 mmHg (35.0-45.0); PO2 ABG 102.7 mmHg (80.0-100.0); PO2 FiO2 Ratio Arterial Blood 1.37 %; Reduced Hemoglobin 2.9 %THb (0-5.0); Total Hemoglobin 13.1 g/dL (12.0-18.0); pH ABG 7.335 (7.350-7.450)
[2020-12-11 04:25] LABS: Glucose Point of Care 347 mg/dl (65-105)
[2020-12-11 04:26] LABS: Arterial Blood Gas PEEP 14 cmH2O; Arterial Blood Gas Tidal Volume 470 ml; Arterial Blood Gas Vent Mode CMV; Arterial Blood Gas Ventilator rate 30 /MIN; Device VENTILATOR; Modified Allen's Test Pass; Site Drawn LEFT RADIAL
[2020-12-11 06:40] LABS: Glucose Point of Care 217 mg/dl (65-105)
[2020-12-11] MEDS: CENTRAL LINE FLUSH 10 ML IV PUSH ×4 (06:47→20:07)
[2020-12-11] MEDS: NOREPINEPHRINE 8 MG/D5W 250 ML 8 MG/250 ML BAG 37.5 MG IV CONT (10:41)
[2020-12-11] MEDS: CALCIUM CHLOR 1,000MG/100ML NS 1,000 MG/100 ML BAG 100 MG IVPB (11:00)
[2020-12-11] MEDS: INSULIN GLARGINE (*BKC) 100 UNITS/ML 50 UNITS SUB-Q (11:00)
--- NOTE | 2020-12-11 11:03 | P.PNNP_ITS ---
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 (3) Pneumonia due to COVID-19 virus: Code(s): U07.1 - COVID-19; J12.82 - Pneumonia due to coronavirus disease 2018 Status: Acute Assessment and Plan: * on dexamethasone and ventilator support * remains on isolation * continue supporrtive therapy (4) DM type 2 (diabetes mellitus, type 2): Qualifiers: Diabetes mellitus correction insulin use: with intermission coordinator use Diabetes mellitus complication status: with ophthalmic complications Diabetes mellitus complication detail: with diabetic retinopathy Diabetic retinopathy severity: with unspecified retinopathy severity Diabetes mellitus macular edema: macular edema presence unspecified Laterality: unspecified laterality Qualified Code(s): E11.319 - Type 2 diabetes mellitus with unspecified diabetic retinopathy without macular edema; Z79.4 - intermediate school teacher (current) use of insulin Code(s): E11.9 - Type 2 diabetes mellitus without complications Status: Acute Assessment and Plan: * follow Accu-Cheks * on slliding-scale insulin Will continue to follow. Subjective Date/time seen: 12/11/20 10:03 Remains on full ventilator support as well as significant vasopressor therapy (neosynephrine off but remains on levophed and vasopressin; renal function/milo eters continue to deteriorate as well; no real change since I last saw him. Exam Narrative: General: WD/WN male intubated/sedated Heart: normal S1 and S2; no rub Lungs: coarse breath sounds throughout Abdomen: soft, nontender, nondistended, positive bowel sounds Extremities: no cyanosis or clubbing; trace edema Skin: warm and intact Objective Data Vital Signs Vital Signs: Vital Signs Temp Pulse Resp BP Pulse Ox 12/11/20 09:20 96 12/11/20 08:43 85 30 H 96 12/11/20 07:57 87 95 12/11/20 07:56 87 30 H 94 12/11/20 06:35 91 30 H 134/71 12/11/20 06:34 91 134/71 12/11/20 06:00 36.1 C L 91 30 H 136/73 94 12/11/20 04:29 78 30 H 97 12/11/20 04:02 97 130/69 12/11/20 04:00 36.3 C L 92 30 H 130/69 94 12/11/20 03:39 87 30 H 97 12/11/20 02:15 87 97 12/11/20 02:11 75 30 H 97 12/11/20 02:00 36.4 C L 75 30 H 109/68 97 12/11/20 01:55 92 119/62 12/11/20 01:53 79 30 H 12/11/20 01:19 79 30 H 12/11/20 00:56 84 30 H 119/64 12/11/20 00:06 96 30 H 12/11/20 00:05 89 30 H 119/64 12/11/20 00:00 36.3 C L 98 30 H 119/64 97 12/10/20 23:49 84 97 12/10/20 23:48 95 30 H 97
--- NOTE | 2020-12-11 11:03 | PM.PNNEP ---
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 (3) Pneumonia due to COVID-19 virus: Code(s): U07.1 - COVID-19; J12.82 - Pneumonia due to coronavirus disease 2019 Status: Acute Assessment and Plan: on dexamethasone and ventilator support remains on isolation continue supporrtive therapy (4) DM type 2 (diabetes mellitus, type 2): Qualifiers: Diabetes mellitus [facility] insulin use: with [facility] use Diabetes mellitus complication status: with ophthalmic complications Diabetes mellitus complication detail: with diabetic retinopathy Diabetic retinopathy severity: with unspecified retinopathy severity Diabetes mellitus macular edema: macular edema presence unspecified Laterality: unspecified laterality Qualified Code(s): E11.319 - Type 2 diabetes mellitus with unspecified diabetic retinopathy without macular edema; Z79.4 - correction (current) use of insulin Code(s): E11.9 - Type 2 diabetes mellitus without complications Status: Acute Assessment and Plan: follow Accu-Cheks on slliding-scale insulin Will continue to follow. Subjective Date/time seen: 12/11/20 10:03 Remains on full ventilator support as well as significant vasopressor therapy (neosynephrine off but remains on levophed and vasopressin; renal function/parameters continue to deteriorate as well; no real change since I last saw him. Exam Narrative: General: WD/WN male intubated/sedated Heart: normal S1 and S2; no rub Lungs: coarse breath sounds throughout Abdomen: soft, nontender, nondistended, positive bowel sounds Extremities: no cyanosis or clubbing; trace edema Skin: warm and intact Objective Data Vital Signs Vital Signs: Vital Signs Temp Pulse Resp BP Pulse Ox 12/11/20 09:20 96 12/11/20 08:43 85 30 H 96 12/11/20 07:57 87 95 12/11/20 07:56 87 30 H 94 12/11/20 06:35 91 30 H 134/71 12/11/20 06:34 91 134/71 12/11/20 06:00 36.1 C L 91 30 H 136/73 94 12/11/20 04:29 78 30 H 97 12/11/20 04:02 97 130/69 12/11/20 04:00 36.3 C L 92 30 H 130/69 94 12/11/20 03:39 87 30 H 97 12/11/20 02:15 87 97 12/11/20 02:11 75 30 H 97 12/11/20 02:00 36.4 C L 75 30 H 109/68 97 12/11/20 01:55 92 119/62 12/11/20 01:53 79 30 H 12/11/20 01:19 79 30 H 12/11/20 00:56 84 30 H 119/64 12/11/20 00:06 96 30 H 12/11/20 00:05 89 30 H 119/64 12/11/20 00:00 36.3 C L 98 30 H 119/64 97 12/10/20 23:49 84 97 12/10/20 23:48 95 30 H 97 12/10/20 23:22 98 115/63 12/10/20 22:45 36.3 C L 101 H 30 H 121/70 12/10/20 22:30 36.3 C L 90 30 H 119/66 12/10/20 22:20 81 30 H 96 12/10/20 22:16 36.2 C L 90 30 H 96 12/10/20 22:15 36.2 C L 94 30 H 117/64 96 12/10/20 22:02 94 125/64 12/10/20 22:00 36.2 C L 91 30 H 125/64 12/10/20 21:57 36.2 C L 96 30 H 135/66 12/10/20 21:45 36.2 C L 96 30 H 128/67 12/10/20 21:31 36.2 C L 88 30 H 12/10/20 21:30 36.2 C L 76 30 H 109/58 L 12/10/20 21:16 36.2 C L 98 30 H 12/10/20 21:15 36.2 C L 97 30 H 132/66 12/10/20 21:11 92 142/66 H 12/10/20 21:10 36.2 C L 80
[2020-12-11] MEDS: INSULIN HUMAN REGULAR (*BKC) 100 UNITS in SODIUM CHLORIDE 0.9% IV 99 ML IV CONT (11:20)
--- NOTE | 2020-12-11 11:20 | WPDINTPN ---
Progress Note: A&P Assessment and Plan (1) Acute respiratory failure: Code(s): J96.00 - Acute respiratory failure, unspecified whether with hypoxia or hypercapnia Status: Acute Assessment and Plan: Acute hypoxic respiratory failure, failed Airvo, high-flow therapy with non-rebreather mask as he was pulling on it. -patient back and forth from Airvo to BiPAP. He was started on Precedex infusion for delirium -eventually he failed BiPAP and was intubated on 12/09 -chest x-ray reviewed and shows diffuse severe bilateral infiltrates, -continue bronchodilators and Pulmicort -chest x-ray and ABGs reviewed. Respiratory rate has been increased to 30 -currently sedated with Versed and fentanyl and chemically paralyzed with Nimbex infusion -wean FiO2 if possible -daily prone ventilation for 18 hours -also on inhaled Flolan (2) Septic shock: Code(s): A41.9 - Sepsis, unspecified organism; R65.21 - Severe sepsis with septic shock Status: Acute Assessment and Plan: Patient became hypotensive post intubation Empiric vanc and cefepime started Blood and sputum culture sent and are pending Chou was replaced Levophed vasopressin titration Recent echocardiogram reviewed (3) Pneumonia due to COVID-19 virus: Code(s): U07.1 - COVID-19; J12.82 - Pneumonia due to coronavirus disease 2019 Status: Acute Assessment and Plan: Patient tested positive for SARS-CoV-2 PCR on 12/03/2020 -continue droplet, airborne and contact isolation/precautions -patient has been started on dexamethasone which was initiated on 12/04 -patient not a candidate for remdesivir given his renal dysfunction -also not a candidate for anti IL 6 medication due to sepsis (4) JACQUIE (acute kidney injury): Code(s): N17.9 - Acute kidney failure, unspecified Status: Acute Assessment and Plan: Patient has developed acute kidney injury over his chronic kidney disease stage 4 He also has metabolic acidosis and mild rhabdomyolysis Urine output is poor Mild hyperkalemia has resolved with treatment with medications Will hold bicarb Conservative IV fluids due to COVID-19 pneumonia and severe respiratory failure Continue bicarb per tube Kayexalate per tube was given yes Hold Bumex due to shock He will likely need hemodialysis but will likely not be able to tolerate intermittent dialysis due to significant shock and will likely need CRRT-see below (5) Chronic kidney disease, stage 4 (severe): Code(s): N18.4 - Chronic kidney disease, stage 4 (severe) Status: Acute Assessment and Plan: Stage 4 chronic kidney disease with acute insult likely related to COVID pneumonia, hypovolemia 2nd decreased p.o. intake fluids rhabdomyolysis as his CK levels are elevated. -renal ultrasound showed bilateral increased renal cortical echogenicity consistent with chronic medical renal disease. No hydronephrosis. (6) Delirium: Code(s): R41.0 - Disorientation, unspecified Status: Acute Assessment and Plan: Now sedated (7) Rhabdomyolysis: Code(s): M62.82 - Rhabdomyolysis Status: Acute Assessment and Plan: Mild rhabdo with CK and 300s-likely not the main issue -conservative IV fluids due to COVID-19 pneumonia and severe hypoxia (8) Atrial fibrillation with RVR: Code(s): I48.91 - Unspecified atrial fibrillation Status: Acute Assessment and Plan: Patient had tachycardia on 12/05/2020 -cardiology was consulted, appreciate their evaluation and recommendation -started on metoprolol and Eliquis -currently on hold -patient was treated with amio bolus and infusion -is currently in sinus tach and has been on and infusion for more than 24 hours. Will hold for now (9) DVT prophylaxis: Code(s): Z29.9 - Encounter for prophylactic measures, unspecified Status: Acute Assessment and Plan: Currently on Eliquis but is on hold for anticipated invasive procedure. May have to
[2020-12-11] MEDS: PANTOPRAZOLE SODIUM IV 40 MG VIAL IV PUSH (11:41)
[2020-12-11] MEDS: FLUTICASONE PROPIONATE 0.05% NA SPR 16 GM BTL (*BKC) 2 SPRAY NASAL (11:46)
[2020-12-11] MEDS: MINERAL OIL/WHITE PETROLATUM OINTMENT 1 APPLIC EACH EYE ×2 (11:48→20:07)
[2020-12-11] MEDS: SODIUM BICARBONATE TAB 650 MG TABLET 1300 MG FEED TUBE ×2 (11:48→18:31)
[2020-12-11] MEDS: CISATRACURIUM BESYLATE 200 MG in DEXTROSE 5% 80 ML 11.13 ML IV CONT ×2 (12:00→20:04)
[2020-12-11] MEDS: SODIUM BICARBONATE 8.4% 150 MEQ in DEXTROSE 5% 1,000 ML 950 ML 75 MEQ IV CONT (12:08)
--- NOTE | 2020-12-11 12:23 | PCDIET ---
Nutrition Follow-Up Complete: Nutrition Diagnosis: Inadequate oral intake related to oral intubation as evidenced by NPO status. Nutrition Goal: Patient to meet estimated nutritional needs. Goal not met. Nepro held this morning for residual of 400mL at 20mL/hr rate. Family discussing option of comfort care vs. initiation of dialysis. If aggressive treatment is desired, would consider appropriateness of prokinetic agent and resuming tube feedings, as able. Last recorded weight is 121.9 kg which is significantly increased from last review. +I/O. Documented 75mL urine output on 12/10/20. Recommend reweighing to ensure accuracy. Bowel Motility: No documented BM as of yet. Labs Reviewed: WBC (22.4), RBC (3.74), Hgb (11.5), Hct (33.7), Glu (217), BUN (140), Cr (6.0), Alb (2.7), Freeman Ca (8.64), PO4 (8.5) Meds Noted: Albuterol, Amiodarone, Decadron, Maxipime, Nimbex, Flolan, Fentanyl, Lantus, IV Insulin, Atrovent, Xopenex, Lopressor, Versed, Levophed, Protonix, Phenylephrine, Sodium Bicarbonate, Vancomycin, Vasopressin, Calcium Chloride, D5/150mEq Sodium Bicarbonate at 75mL/hr Additional Notes: No documented skin breakdown. Will follow closely for plan of care and provide additional recommendations, as needed. Nutrition Monitoring and Evaluation: Follow up every Thursday/Thursday. Follow daily in ICU rounds.
[2020-12-11 12:24] LABS: INR 1.4; Partial Thromboplastin Time 33.8 SECONDS (22.3-36.8); Prothrombin Time 16.5 Seconds (11.1-14.7)
[2020-12-11 12:32] LABS: Fibrinogen 253 mg/dl (215-510)
--- NOTE | 2020-12-11 14:15 | PM.PNCARD ---
Progress Note: A&P Assessment and Plan (1) Tachycardia: Code(s): R00.0 - Tachycardia, unspecified Status: Acute Assessment and Plan: New onset atrial fibrillation secondary to acute illness with COVID-19 pneumonia. Rate had been controlled with low dose metoprolol. However, over the past several days, patient had worsening respiratory distress requiring intubation and he became hypotensive, so metoprolol was discontinued. - Systemically anticoagulated with eliquis In sinus rhythm at this point. Continue anticoagulation Subjective Date/time seen: 12/11/20 14:15 Interval history: Pt is a 75 y/o male here for COVID PNA. Consult for AFib Date of service 12/11/2020: Still intubated sedated. Converted to sinus rhythm. Review of Systems Review of Systems: ROS unobtainable: Yes unobtainable due to mental status Exam Narrative: Ill-appearing older male resting in bed. Intubated. Const: General: comfortable and no acute distress HENMT: Head: normal to inspection Neck: Neck: normal visual inspection Resp: Effort & Inspection: other (mechanically ventilated) Cardio: Rate: regular rate Rhythm: regular rhythm Urinary Catheter: Urinary Catheter: patent and draining Psych: Mental Status: mental status grossly abnormal Objective Data Vital Signs Vital Signs: Vital Signs - 24 hr 12/10/20 14:30 12/10/20 14:45 12/10/20 15:45 Temperature Pulse Rate 75 73 95 Respiratory Rate Blood Pressure 131/69 135/74 Pulse Oximetry 92 12/10/20 16:00 12/10/20 16:25 12/10/20 16:45 Temperature 35.9 C L Pulse Rate 101 H 97 90 Respiratory Rate 30 H 30 H Blood Pressure 142/78 H 150/76 H Pulse Oximetry 60 L 90 12/10/20 17:15 12/10/20 18:00 12/10/20 18:29 Temperature 35.9 C L Pulse Rate 94 97 97 Respiratory Rate 30 H 30 H Blood Pressure 153/83 H 153/83 H Pulse Oximetry 94 90 12/10/20 18:45 12/10/20 19:00 12/10/20 19:15 Temperature 36.0 C L 36.1 C L Pulse Rate 93 96 102 H Respiratory Rate 30 H 30 H Blood Pressure 109/54 L 153/74 H 150/75 H Pulse Oximetry 95 96 12/10/20 19:16 12/10/20 19:30 12/10/20 19:45 Temperature 36.1 C L 36.1 C L 36.1 C L Pulse Rate 102 H 101 H 80 Respiratory Rate 30 H 30 H 30 H Blood Pressure 147/83 H Pulse Oximetry 96 94 12/10/20 19:46 12/10/20 19:54 12/10/20 19:55 Temperature 36.1 C L Pulse Rate 77 78 78 Respiratory Rate 30 H 30 H Blood Pressure 134/73 Pulse Oximetry 93 91 90 12/10/20 20:00 12/10/20 20:15 12/10/20 20:16 Temperature 36.1 C L 36.1 C L 36.1 C L Pulse Rate 78 79 79 Respiratory Rate 30 H 30 H 30 H Blood Pressure 152/67 H 151/67 H Pulse Oximetry 89 L 87 L 86 L 12/10/20 20:26 12/10/20 20:30 12/10/20 20:31 Temperature 36.1 C L 36.1 C L Pulse Rate 81 84 82 Respiratory Rate 30 H 30 H Blood Pressure 151/67 H 151/64 H Pulse Oximetry 88 L 87 L 12/10/20 20:45 12/10/20 20:46 12/10/20 20:54 Temperature 36.1 C L 36.1 C L 36.2 C L Pulse Rate 78 78 89 Respiratory Rate 30 H 30 H 30 H Blood Pressure 157/66 H 151/69 H Pulse Oximetry 99 100 100 12/10/20 20:56 12/10/20 20:59 12/10/20 21:00 Temperature 36.2 C L 36.1 C L Pulse Rate 89 94 82 Respiratory Rate 30 H 30 H Blood Pressure 149/67 H 149/67 H 142/64 H Pulse Oximetry 99 12/10/20 21:02 12/10/20 21:05 12/10/20 21:06 Temperature 36.2 C L 36.1 C L Pulse Rate 80 94 94 Respiratory Rate 30 H 30 H 30 H Blood Pressure 137/67 149/72 H 149/72 H Pulse Oximetry 99 12/10/20 21:07 12/10/20 21:10 12/10/20 21:11 Temperature 36.2 C L Pulse Rate 93 80 92 Respiratory Rate 30 H 30 H Blood Pressure 142/66 H 142/66 H Pulse Oximetry 97 12/10/20 21:15 12/10/20 21:16 12/10/20 21:30 Temperature 36.2 C L 36.2 C L 36.2 C L Pulse Rate 97 98 76 Respiratory Rate 30 H 30 H 30 H Blood Pressure 132/66 109/58 L Pulse Oximetry 12/10/20 21:31 12/10/20 21:45 12/10/20 21:57 Temperature 36.2 C L 36.2 C L 36.2 C L Pulse Rate 88 96
[2020-12-11] MEDS: FENTANYL 2,500MCG/NS250ML(*CRX 2,500 MCG/250 ML BAG 15 MCG IV CONT (16:00)
[2020-12-11 16:06] LABS: Glucose Point of Care 97 mg/dl (65-105)
[2020-12-11 16:06] LABS: Glucose Point of Care 152 mg/dl (65-105)
[2020-12-11 16:07] LABS: Glucose Point of Care 74 mg/dl (65-105)
[2020-12-11 16:07] LABS: Glucose Point of Care 90 mg/dl (65-105)
[2020-12-11 16:07] LABS: Glucose Point of Care 97 mg/dl (65-105)
[2020-12-11] MEDS: NOREPINEPHRINE 8 MG/D5W 250 ML 8 MG/250 ML BAG 56.25 MG IV CONT (17:15)
[2020-12-11] MEDS: METOCLOPRAMIDE HCL 10 MG/10 ML SOLN UDC FEED TUBE ×2 (18:31→20:07)
[2020-12-11 20:22] LABS: Glucose Point of Care 187 mg/dl (65-105)
--- NOTE | 2020-12-11 21:37 | PC.NURSE ---
Spoke with Kitty() and Salomon (son) in detail regarding patient current condition and possible comfort measures. They had both spoken to Dr. Ruelas in detail with prognosis and possible comfort measures. Family has mad the decision to make him comfort measures. They do not wish to be up here for that, however they would like to have the phone up to his ear.
--- NOTE | 2020-12-11 22:08 | PC.NURSE ---
Family said their goodbyes via phone. Patient again is comfort care measures only. All information gathered. Family updated with what next steps will be regarding home ([place]).
--- NOTE | 2020-12-11 22:15 | PC.NURSE ---
Patient on comfort care. Patient passed at 2215. Myself and Oren Galvez RN at bedside.
--- NOTE | 2020-12-11 23:00 | PM.DDS ---
Discharge Summary Date and Time Date of : 12/11/20 Time of : 22:15 Provider Pronounced By: marcel gilmore Probable Cause of Probable Cause of : COVID-19 Summary Hospital Course: Date of service December 11, 2020 Patient is a 75-year-old male who presented emergency room December 03, 2020 due to weakness and shortness of breath. Patient was fully vaccinated for COVID-19 and had a history of diabetes, chronic kidney disease and hypertension. Vitals in the ER were white blood cell count 12.1, hemoglobin 12.7, hematocrit 39.0, platelets 200. Initial creatinine 4.2 which was more elevated than baseline. Lactic acid 1.3. 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 Patient was admitted to the hospitalist service and observed. He tested positive for COVID and was started on Decadron. He was unable to receive Remdesivir due to his kidney disease. Unfortunately, his creatinine did not improve and worsened. Nephrology was consulted and was considering dialysis and was speaking with the family about such. He also had hyperglycemia which was worsened by the Decadron. Patient continued to decline and became significantly confused. He was moved to the ICU due to agitation and pulling off his oxygen. He was placed on Precedex with his oxygen and he initially did well. He than, again, worsened and had to be intubated and was proned. Unfortunately, the patient's condition continued to deteriorate. Long conversations with the family were done with myself and Dr. Ruelas and the family ultimately decided on comfort care. The patient peacefully on 12/11/20. Family was notified and condolences were given. Additional Data Confirmation of as documented by pronouncing clinician: Pupillary Reflex, Palpable Pulses, Response to Stimuli, Heart Tones and Breath Sounds Name of Provider Notified: Dr. Ruelas Time Provider Notified: 22:15 Provider Requests Autopsy: No Family Requests Autopsy: No Signal Maintainer Helper Notified: Yes Date [facility] Notified of : 12/11/20 Time [facility] Notified of : 22:56
== END 2020-12-11 22:30 | disposition expired | DRG 871 ==
LOC: ANHED 11:33 → ANH3MEDSUR 16:27 → ANHIMU 12-04 22:58 → ANHICU 12-05 20:33
PROVIDERS: Emergency Medicine Emergency Medical Services; Internal Medicine; Internal Medicine Nephrology; Physician Assistant; Admitting Provider Internal Medicine Critical Care Medicine; Emergency Provider Emergency Medicine; PCP Internal Medicine; Visit Provider Nurse Practitioner
DX: A41.89 Other specified sepsis (principal); J96.01 Acute respiratory failure with hypoxia; U07.1 COVID-19; J12.82 Pneumonia due to coronavirus disease 2019; R65.21 Severe sepsis with septic shock; M62.82 Rhabdomyolysis; N17.9 Acute kidney failure, unspecified; N18.4 Chronic kidney disease, stage 4 (severe); Z66 Do not resuscitate; E86.0 Dehydration; E11.22 Type 2 diabetes mellitus with diabetic chronic kidney disease; E11.319 Type 2 diabetes mellitus with unspecified diabetic retinopathy without macular edema; E11.42 Type 2 diabetes mellitus with diabetic polyneuropathy; E11.65 Type 2 diabetes mellitus with hyperglycemia; I12.9 Hypertensive chronic kidney disease with stage 1 through stage 4 chronic kidney disease, or unspecified chronic kidney disease; I48.91 Unspecified atrial fibrillation; R41.0 Disorientation, unspecified; E78.5 Hyperlipidemia, unspecified; K21.9 Gastro-esophageal reflux disease without esophagitis; R79.89 Other specified abnormal findings of blood chemistry; R31.9 Hematuria, unspecified; W06.XXXA Fall from bed, initial encounter; Z74.09 Other reduced mobility; Z79.4 Long term (current) use of insulin; Z79.899 Other long term (current) drug therapy
CPT/HCPCS: 31500; 36415; 36600; 51701; 70450; 71045; 71046; 76775; 80048; 80053; 80069; 80076; 81001; 82375; 82550; 82570; 82728; 82805; 82948; 83036; 83050; 83605; 83615; 83690; 83735; 83880; 83970; 84100; 84145; 84156; 84300; 84484; 85014; 85018; 85025; 85027; 85384; 85610; 85730; 86140; 86413; 86769; 87040; 87086; 93005; 93306; 93970; 94002; 94003; 94640; 94660; 96361; 96365; 96367; 96368; 96375; 97161; 97165; 99285; A9270; C1751; C9113; C9803; G0378; J0131; J0282; J0456; J0610; J0692; J0696; J1100; J1630; J1644; J1650; J1815; J2060; J2250; J2370; J3010; J3370; J7030; J7060; J7070; J7120; U0003; U0005